=== PATIENT | female | born 1975 | race Caucasian/White ===

== ENCOUNTER 2017-10-06 10:11 | Emergency (ER) | payer OTHER ==
[2017-10-06 10:29] VITALS: BP 125/63; RESP 18
[2017-10-06] MEDS ORDERED: IPRATROPIUM-ALBUTEROL 3 ML NEB INHALATION STA (10:44)
--- NOTE | 2017-10-06 10:47 | ED ---
URI HPI - General Chief Complaint: Upper Respiratory Infection Stated Complaint: cough, chest congestion Time Seen by Provider: 10/06/17 10:30 Source: patient, RN notes reviewed Mode of arrival: ambulatory Limitations: no limitations - History of Present Illness Initial Comments: This is a 42-year-old female with a prior history of bronchitis last year also pneumonia about 3 years ago who states she had the onset 4 days ago of a cough with rhinorrhea some sore throat slight shortness of breath. No definite fevers or chills or sweats. She states she's been coughing quite a bit. She coughs up some phlegm but is not sure what color it is that she does not look at it. He has a nausea vomiting no earaches no similar symptoms reported. She states that at times she does need a rescue inhaler though she has not been using it this week. MD Complaint: cough, sore throat, nasal congestion - Related Data Home Medications Medication Instructions Recorded Confirmed Levothyroxine Sodium [Synthroid] 75 mcg PO DAILY 07/25/14 09/11/15 Albuterol Inhaler [Ventolin 1 - 2 puff INHALATION Q4HR PRN 02/06/15 09/11/15 Inhaler] Previous Rx's Medication Instructions Recorded Acetaminophen-Codeine 300-30mg 1 each PO Q4H PRN #20 tablet 07/30/15 [Tylenol w/codeine #3] Naproxen [Naprosyn] 500 mg PO Q12HR #24 tab 07/30/15 Acetaminophen-Codeine 300-30mg 1 tab PO Q6H PRN #20 tablet 09/11/15 [Tylenol #3] Metaxalone [Skelaxin] 800 mg PO TID PRN #15 tab 09/11/15 Albuterol Inhaler [Ventolin Hfa 2 puff INHALATION Q6HR PRN #1 10/06/17 Inhaler] inhaler predniSONE 20 mg PO BID #10 tab 10/06/17 Allergies Allergy/AdvReac Type Severity Reaction Status Date / Time azithromycin Allergy Rash/Hives Verified 10/06/17 10:29 erythromycin base Allergy Nausea & Verified 10/06/17 10:29 [Erythromycin Base] Vomiting methylphenidate HCl Allergy Rash/Hives Verified 10/06/17 10:29 [From Ritalin] zolpidem tartrate Allergy Nausea & Verified 10/06/17 10:29 [From nAnien] Vomiting Review of Systems ROS Statement: Those systems with pertinent positive or pertinent negative responses have been documented in the HPI. ROS Other: All systems not noted in ROS Statement are negative. Past Medical History Past Medical History: Thyroid Disorder Additional Past Medical History / Comment(s): BACK PAIN History of Any Multi-Drug Resistant Organisms: None Reported Past Surgical History: Tonsillectomy Additional Past Surgical History / Comment(s): ganglion cyst removed right wrist , abcess drained left hip Past Psychological History: No Psychological Hx Reported Smoking Status: Never smoker Past Alcohol Use History: Rare Past Drug Use History: None Reported General Exam - General Exam Comments Initial Comments: This is a well-developed well-nourished awake alert oriented 4 female Limitations: no limitations General appearance: alert, other (A coarse cough is noted.) Head exam: Present: atraumatic, normocephalic, normal inspection Eye exam: Present: normal appearance, PERRL, EOMI. Absent: scleral icterus, conjunctival injection, periorbital swelling ENT exam: Present: mucous membranes moist, other (Mild posterior pharyngeal hyperemia no exudate seen no tonsillar pillars and see had a tonsillectomy. TMs are intact and boggy nasal mucosa with evidence of some mild clear drainage) Neck exam: Present: normal inspection, full ROM. Absent: tenderness, meningismus, lymphadenopathy Respiratory exam: Present: decreased breath sounds Cardiovascular Exam: Present: regular rate, normal rhythm, normal heart sounds. Absent: systolic murmur, diastolic murmur, rubs, gallop, clicks GI/Abdominal exam: Absent: distended, tenderness, guarding, rebound, rigid Extremities exam: Present: normal inspection, full ROM, normal capillary refill. Absent: tenderness, pedal edema, joint swelling, calf tenderness Back exam: Present: normal inspection Neurological exam: Present: alert, oriented X3, CN II-XII intact Psychiatric exam: Present: normal affect, normal mood Skin exam: Present: warm, dry, intact, normal color. Absent: rash Course Vital Signs 10/06/17 10/06/17 10/06/17 10:26 11:05 11:14 Temperature 99 F Pulse Rate 69 58 L 62 Respiratory 18 Rate Blood Pressure 125/63 O2 Sat by Pulse 96 Oximetry Medical Decision Making - Medical Decision Making Patient initially improved her lung sounds have improved she had increased aeration and is breathing easier. The influenza swab was negative. The presentation is consistent with a viral upper respiratory infection with bronchospasm. She will be discharged on appropriate medication and short course of oral steroids she will be given a new inhaler as for otherwise over 3 years old. The patient is a nonsmoker and will avoid smoke. - Lab Data Lab Results 10/06/17 Range/Units 10:56 Influenza Type A RNA Not Detected (Not Detectd) Influenza Type B (PCR) Not Detected (Not Detectd) - Radiology Data Radiology results: report reviewed (I did review the imaging and reports no evidence of acute findings on x-ray.), image reviewed Disposition Clinical Impression: Acute bronchospasm, Viral upper respiratory infection Disposition: HOME SELF-CARE Condition: Good Instructions: Upper Respiratory Infection (ED), Bronchospasm (ED) Prescriptions: Albuterol Inhaler [Ventolin Hfa Inhaler] 2 puff INHALATION Q6HR PRN #1 inhaler PRN Reason: Dyspnea predniSONE 20 mg PO BID #10 tab Referrals: Reanna Patton III, MD [Primary Care Provider] - 1-2 days
--- NOTE | 2017-10-06 11:41 | XR ---
EXAMINATION TYPE: XR chest 2V DATE OF EXAM: 10/06/2017 COMPARISON: 02/06/2015 HISTORY: 42-year-old female with cough and congestion TECHNIQUE: PA and lateral views FINDINGS: The cardiomediastinal silhouette, aorta, and pulmonary vasculature are within normal limits. Some str selma lower lung atelectasis. Otherwise, lungs and pleural spaces are clear. IMPRESSION: No acute cardiopulmonary process.
[2017-10-06] MEDS ORDERED: predniSONE 50 MG TAB PO STA (11:49)
[2017-10-06 12:02] VITALS: PULSE 66; TEMP 97.8
== END 2017-10-06 12:01 | disposition home or self-care (01) ==
LOC: EC 10:11
DX: J98.01 Acute bronchospasm (principal); J06.9 Acute upper respiratory infection, unspecified; E07.9 Disorder of thyroid, unspecified; Z88.1 Allergy status to other antibiotic agents; Z88.8 Allergy status to other drugs, medicaments and biological substances; Z79.899 Other long term (current) drug therapy
CPT/HCPCS: 99284; 94640; 87502; 71020; J7512

== ENCOUNTER → 2017-12-06 | Outpatient (CLI) | payer OTHER ==
--- NOTE | 2017-12-06 10:11 | MM ---
Reason for exam: screening (asymptomatic). Baseline mammogram. History: Patient is nulliparous. Physical Findings: Nurse did not find any significant physical abnormalities on exam. MG Screening Mammo w CAD Bilateral CC and MLO view(s) were taken. The breast tissue is heterogeneously dense. This may lower the sensitivity of mammography. Focal asymmetry left lower inner quadrant middle position. These results were verbally communicated with the patient and result sheet given to the patient on 12/06/17. ASSESSMENT: Incomplete: need additional imaging evaluation, BI-RAD 0 RECOMMENDATION: Ultrasound of the left breast. [facility] will attempt to contact patient to return for ultrasound.
--- NOTE | 2017-12-06 10:13 | USB ---
Reason for exam: additional evaluation requested from abnormal screening. History: Patient is nulliparous. US Breast Workup Limited LT Left breast ultrasound demonstrates a 0.7 x 0.3 x 0.8cm oval, mixed lesion at 7 o'clock. These results were verbally communicated with the patient and result sheet given to the patient on 12/06/17. ASSESSMENT: Probably benign, BI-RAD 3 RECOMMENDATION: Follow-up diagnostic mammogram and ultrasound of the left breast in 6 months.
--- NOTE | 2017-12-06 19:20 | US ---
EXAMINATION TYPE: US abdomen complete DATE OF EXAM: 12/06/2017 COMPARISON: NONE CLINICAL HISTORY: R10.11 RUQ pain. RUQ pain for 5 months, getting worse. Nausea and vomiting for 2 mo nths, IBS EXAM MEASUREMENTS: Liver Length: 16.7 cm Gallbladder Wall: 0.2 cm CBD: 0.3 cm Spleen: 12.7 cm Right Kidney: 10.3 x 3.3 x 4.9 cm Left Kidney: 12.3 x 5.2 x 4.7 cm Technical limitations due to patient's body habitus and large amount of overlying bowel content Pancreas: Obscured by bowel gas Liver: attenuating Gallbladder: no evidence of stones Evidence for sonographic Rizzo's sign: yes CBD: appears wnl as visualized Spleen: wnl Right Kidney: no evidence of hydronephrosis or mass Left Kidney: no evidence of hydronephrosis or mass Upper IVC: wnl Abd Aorta: visualized portions appear wnl, bifurcation obscured IMPRESSION: 1. Visualized abdomen is unremarkable. 2. There is limitation due to body habitus and bowel gas.
== END | disposition home or self-care (01) ==
LOC: RADMAMWWP 06:51
PROVIDERS: ATTEND Family Medicine
DX: Z12.31 Encounter for screening mammogram for malignant neoplasm of breast (principal); R14.3 Flatulence
CPT/HCPCS: 76700; 77067

== ENCOUNTER → 2018-06-04 | Outpatient (CLI) | payer OTHER ==
--- NOTE | 2018-06-05 10:05 | MM ---
Reason for exam: follow-up at short interval from prior study. Last mammogram was performed 6 months ago. History: Patient is nulliparous. Physical Findings: Nurse did not find any significant physical abnormalities on exam. MG Diagnostic Mammo LT w CAD CC and MLO view(s) were taken of the left breast. Prior study comparison: December 06, 2017, bilateral MG screening mammo w CAD. The breast tissue is heterogeneously dense. This may lower the sensitivity of mammography. No suspicious abnormality. The lower inner quadrant middle depth focal asymmetry is unchanged from the prior. These results were verbally communicated with the patient and result sheet given to the patient on 06/04/18. ASSESSMENT: Probably benign, BI-RAD 3 RECOMMENDATION: Follow-up diagnostic mammogram of both breasts in 6 months. Back on schedule for November 2018.
--- NOTE | 2018-06-05 10:12 | USB ---
Reason for exam: additional evaluation requested from abnormal screening. History: Patient is nulliparous. US Breast LT Left complete breast ultrasound includes all four quadrants, the retroareolar region and axilla. Finding demonstrates a 0.4 x 0.4 x 0.4cm oval, cystic, benign lesion at 4 o'clock, a 0.2 x 0.2 x 0.2cm lesion too small to characterize at 5 o'clock, 6 month follow up recommended and a 0.4 x 0.1 x 0.4cm cystic, benign lesion at 7 o'clock. These results were verbally communicated with the patient and result sheet given to the patient on 06/04/18. ASSESSMENT: Probably benign, BI-RAD 3 RECOMMENDATION: Ultrasound of the left breast in 6 months. (attention 5 o'clock)
== END | disposition home or self-care (01) ==
LOC: RADMAMWWP 14:32
PROVIDERS: ATTEND Family Medicine
DX: R92.8 Other abnormal and inconclusive findings on diagnostic imaging of breast (principal)
CPT/HCPCS: 77065

== ENCOUNTER 2018-11-23 14:40 | Emergency (ER) | payer OTHER ==
[2018-11-23 15:13] VITALS: BP 141/87; PULSE 74; RESP 18; TEMP 98.4
[2018-11-23] MEDS ORDERED: KETOROLAC 60 MG/2 ML VIAL IM STA (16:17)
--- NOTE | 2018-11-23 16:56 | ED ---
General Adult HPI - General Chief complaint: Back Pain/Injury Stated complaint: Back pain Source: patient, RN notes reviewed, old records reviewed Mode of arrival: ambulatory Limitations: no limitations - History of Present Illness Initial comments: 43-year-old female patient with past history of chronic back pain, muscle spasms present to ED with approximately 2 days of right perithoracic muscle spasms. 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 Patient states that she has been muscle tightness, muscle spasms last 2 days. Patient states that she has taken Robaxin at home with limited success. Pt states that muscle spasms feel the same as they have in the past. Patient denies any falls or trauma. Patient denies any other symptoms. Patient has a nausea vomiting diarrhea, fever chills, saddle anesthesia, paresthesias, IV drug use, chest pain, shortness breath, abdominal pain. Pt states that she is not . Systemic: Pt denies fatigue, fever/chills, rash. Pt denies weakness, night sweats, weight loss. Neuro: Pt denies headache, visual disturbances, syncope or pre-syncope. HEENT: Pt denies ocular discharge or irritation, otalgia, rhinorrhea, pharyngitis or notable lymphadenopathy. Cardiopulmonary: Pt denies chest pain, SOB, heart palpitations, dyspnea on exertion. Abdominal/GI: Pt denies abdominal pain, n/v/d. : Pt denies dysuria, burning w/ urination, frequency/urgency. Denies new onset urinary or bowel incontinence. MSK: Pt denies myalgia, loss of strength or function in extremities. Neuro: Pt denies new onset weakness, paresthesias. - Related Data Home Medications Medication Instructions Recorded Confirmed Levothyroxine Sodium [Synthroid] 75 mcg PO DAILY 07/25/14 09/17/18 Albuterol Inhaler [Ventolin 1 - 2 puff INHALATION Q4HR PRN 02/06/15 09/17/18 Inhaler] Previous Rx's Medication Instructions Recorded Naproxen [Naprosyn] 500 mg PO Q12HR #24 tab 07/30/15 Metaxalone [Skelaxin] 800 mg PO TID PRN #15 tab 09/11/15 Albuterol Inhaler [Ventolin Hfa 2 puff INHALATION Q6HR PRN #1 11/25/17 Inhaler] inhaler SUMAtriptan SUCCINATE [Imitrex] 25 mg PO ONCE PRN #12 tablet 11/07/17 Allergies Allergy/AdvReac Type Severity Reaction Status Date / Time azithromycin Allergy Rash/Hives Verified 11/23/18 15:13 erythromycin base Allergy Nausea & Verified 11/23/18 15:13 [Erythromycin Base] Vomiting methylphenidate HCl Allergy Rash/Hives Verified 11/23/18 15:13 [From Ritalin] zolpidem tartrate Allergy Nausea & Verified 11/23/18 15:13 [From Ambien] Vomiting Review of Systems ROS Statement: Those systems with pertinent positive or pertinent negative responses have been documented in the HPI. ROS Other: All systems not noted in ROS Statement are negative. Past Medical History Past Medical History: Thyroid Disorder Additional Past Medical History / Comment(s): BACK PAIN History of Any Multi-Drug Resistant Organisms: MRSA Date of last positivie culture/infection: childhood MDRO Source:: left hip Past Surgical History: Tonsillectomy Additional Past Surgical History / Comment(s): ganglion cyst removed right wrist , abcess drained left hip Past Psychological History: Depression Smoking Status: Never smoker Past Alcohol Use History: None Reported Past Drug Use History: None Reported General Exam - General Exam Comments Initial Comments: Constitutional: NAD, AOX3, Pt has pleasant affect. HEENT: NC/AT, trachea midline, neck supple, no lymphadenopathy. Posterior pharynx non erythematous, without exudates. External ears appear normal, without discharge. Mucous membranes moist. Eyes PERRLA, EOM intact. There is no scleral icterus. No pallor noted. Cardiopulmonary: RRR, no murmurs, rubs or gallops, no JVD noted. Lungs CTAB in anterior and posterior gutierrez. No peripheral edema. Abdominal exam: Abdomen soft and non-distended. Abdomen non-tender to palpation in all 4 quadrants. Bowel sounds active in LLQ. No hepatosplenomegaly. No ecchymosis Neuro: CN II-XII intact. No nuchal rigidity. Kernigs and brudzinskis negative. MSK: Psoas and quadriceps strength 5/5 bilaterally. Pt ambulatory, heel to toe walking intact. R para thoracic region mildly tender to palpation. No midline cervical, thoracic or lumbar tenderness to palpation. No posterior calf tenderness bilaterally, homans sign negative bilaterally. Posterior tibialis and radial pulse +2 bilaterally. Sensation intact in upper and lower extremities. Full active ROM in upper and lower extremities, 5/5 stregnth. Limitations: no limitations Course Vital Signs 11/23/18 15:10 Temperature 98.4 F Pulse Rate 74 Respiratory 18 Rate Blood Pressure 141/87 O2 Sat by Pulse 99 Oximetry Medical Decision Making - Medical Decision Making 43-year-old female patient with past history of chronic back pain, muscle spasms present to ED with approximately 2 days of right perithoracic muscle spasms. 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 Patient states that she has been muscle tightness, muscle spasms last 2 days. Patient states that she has taken Robaxin at home with limited success. Pt states that muscle spasms feel the same as they have in the past. Patient denies any falls or trauma. Patient denies any other symptoms. Physical exam displayed: Psoas and quadriceps strength 5/5 bilaterally. Pt ambulatory, heel to toe walking intact. R para thoracic region mildly tender to palpation. No midline cervical, thoracic or lumbar tenderness to palpation. Pt improved with toradol. Pt feel comfortable with discharge and to resume her outpatient regimen. Patient to follow up with primary care provider tomorrow. Patient to return to ED if descends symptoms develop, or if condition worsens in any way. Case discussed in depth with Dr. Patel. Disposition Clinical Impression: Spasm of thoracic back muscle Disposition: HOME SELF-CARE Condition: Good Instructions: Chronic Back Pain (ED), Acute Low Back Pain (ED) Additional Instructions: Patient to adhere to previously discussed treatment plan and will take medication(s) as directed. Patient to follow up with PCP in 1-2 days. Patient to return to ED if symptoms do not improve. Is patient prescribed a controlled substance at d/c from ED?: No Referrals: Reanna Patton III, MD [Primary Care Provider] - 1-2 days Time of Disposition: 16:55
== END 2018-11-23 17:02 | disposition home or self-care (01) ==
LOC: EC 14:40
DX: M62.830 Muscle spasm of back (principal); G89.29 Other chronic pain; E07.9 Disorder of thyroid, unspecified; Z79.890 Hormone replacement therapy; Z88.1 Allergy status to other antibiotic agents; Z88.8 Allergy status to other drugs, medicaments and biological substances
CPT/HCPCS: 99283; J1885

== ENCOUNTER 2019-04-02 07:32 | Day surgery (SDC) | payer OTHER ==
[2019-04-01 09:06] VITALS: BMI 43.7
[~2019-04-02 07:32] MED LIST: LACTATED RINGERS 1,000 ML IV SCH
[2019-04-02 08:41] VITALS: TEMP 96.9
[2019-04-02] MEDS ORDERED: LIDOCAINE 1% 20 ML VIAL (10MG/ML) FOR IV START INTRADERMA ONE (08:47)
[2019-04-02] MEDS ORDERED: MIDAZOLAM 2 MG/2 ML VIAL ONE (09:13)
[2019-04-02] MEDS ORDERED: fentaNYL (PF) 50 MCG/ML 2 ML AMP ONE (09:13)
[2019-04-02] MEDS ORDERED: PROPOFOL 10 MG/ML 20 ML VIAL IV ONE (09:13)
--- NOTE | 2019-04-02 09:29 | P.PCN ---
Date of Procedure: 04/02/19 Procedure(s) Performed: Brief history: Patient is a pleasant 44-year-old white female, scheduled for an elective upper endoscopy as well as colonoscopy as a part of evaluation of iron deficiency anemia. She denies any abdominal pain, nausea vomiting. She does bleed of intermittent chronic diarrhea for years duration. Procedure performed: Esophagogastroduodenoscopy with biopsy Colonoscopy Preoperative diagnosis: Iron deficiency anemia and/chronic diarrhea [place] [facility] [place]: After informed consent was obtained from the patient was brought into the endoscopy unit and IV sedation was administered by anesthesia under continuous monitoring. Initially upper endoscopy was done. The Olympus GF 160 video endoscope was inserted inserted into the mouth and esophagus intubated without any difficulty and was gradually advanced into the stomach and duodenum and carefully examined. The bulb and second part of the duodenum had mild minimal mucosal changes with scalloping of the mucosa suspicious for celiac disease and multiple biopsies were done from this area. The scope was then withdrawn into the stomach adequately insufflated with air and upon careful examination the antrum had mild gastritis and biopsies were done from this area. The body, cardia and fundus appeared normal. The scope was then withdrawn into the esophagus. The GE junction was located at 40 cm to the incisors. It appeared regular with no erythema erosions or ulcerations. Rest of the esophagus appeared normal. Patient tolerated the procedure well. At this time the patient continued to remain sedation. Initial digital rectal examination was normal. Olympus CF 160 video colonoscope was then inserted into the rectum and gradually advanced to the cecum without any difficulty. Careful examination was performed as the scope was gradually being withdrawn. The prep was excellent. The cecum, ascending colon, transverse colon, descending colon, sigmoid colon and rectum appeared normal. Retroflexion was performed in the rectum and no lesions were noted. Patient tolerated the procedure well. Impression: 1. Upper endoscopy revealed gastritis and mild scalloping of the duodenal mucosa in the second portion of the duodenum status post multiple biopsies to rule out celiac disease 2. Colonoscopy was essentially within normal limits with no evidence of colitis or colorectal neoplasia Recommendations: Findings of this examination were discussed with the patient as well as her family. She was advised to follow with the biopsy results. she can have a repeat screening colonoscopy in 10 years.
[2019-04-02 09:37] VITALS: RESP 18
[2019-04-02 10:05] VITALS: BP 125/60; PULSE 65
== END 2019-04-02 10:15 | disposition home or self-care (01) ==
LOC: ORWHC2ENDO 07:32
PROVIDERS: ATTEND Internal Medicine Gastroenterology
DX: K29.50 Unspecified chronic gastritis without bleeding (principal); D50.9 Iron deficiency anemia, unspecified; K52.9 Noninfective gastroenteritis and colitis, unspecified; E66.01 Morbid (severe) obesity due to excess calories; Z68.41 Body mass index [BMI] 40.0-44.9, adult; E07.9 Disorder of thyroid, unspecified; G89.29 Other chronic pain; M54.9 Dorsalgia, unspecified; Z79.1 Long term (current) use of non-steroidal anti-inflammatories (NSAID); Z79.890 Hormone replacement therapy; Z79.899 Other long term (current) drug therapy; Z88.1 Allergy status to other antibiotic agents; Z88.8 Allergy status to other drugs, medicaments and biological substances
CPT/HCPCS: 81025; 88305; 45378; 43239; J2250; J3010; J2704

== ENCOUNTER 2019-04-17 13:57 | Emergency (ER) | payer OTHER ==
[2019-04-17] MEDS ORDERED: DEXAMETHASONE SOD PHOSPHATE 10 MG/ML 1 ML VIAL IM STA (14:55)
--- NOTE | 2019-04-17 15:04 | ED ---
General Adult HPI - General Chief complaint: Shortness of Breath Stated complaint: AIXA Time Seen by Provider: 04/17/19 14:45 Source: patient, RN notes reviewed, old records reviewed Mode of arrival: ambulatory Limitations: no limitations - History of Present Illness Initial comments: 44-year-old female presented for evaluation of cough and congestion. Patient's symptoms have been present for approximately one week. She reports rhinorrhea and nasal congestion. She has previous history of seasonal ALLERGIES. She hasn't had a nonproductive cough. No fever chills. No sore throat. No chest pain. No history of CAD, no history of DVT or PE. She is a nonsmoker. - Related Data Home Medications Medication Instructions Recorded Confirmed Levothyroxine Sodium [Synthroid] 75 mcg PO DAILY 07/25/14 04/17/19 Meloxicam [Mobic] 7.5 mg PO DAILY PRN 04/01/19 04/17/19 Methocarbamol [Robaxin] 750 mg PO Q8HR PRN 04/01/19 04/17/19 Albuterol Inhaler [Ventolin Hfa 2 puff INHALATION RT-Q6H PRN 04/17/19 04/17/19 Inhaler] Bacillus Coagulans/Inulin 1 cap PO DAILY 04/17/19 04/17/19 [Probiotic with Prebiotic Cap] Biotin 5 mg PO DAILY 04/17/19 04/17/19 Cholecalciferol (Vitamin D3) 2,000 unit PO DAILY 04/17/19 04/17/19 [Vitamin D3] Cyanocobalamin (Vitamin B-12) 1,000 mcg PO DAILY 04/17/19 04/17/19 [Vitamin B-12] Previous Rx's Medication Instructions Recorded Albuterol Inhaler [Ventolin Hfa 1 - 2 puff INHALATION Q4HR PRN #1 04/17/19 Inhaler] inhaler Loratadine [Claritin] 10 mg PO DAILY #30 tab 04/17/19 methylPREDNISolone Dose Pack 4 mg PO DIRECTED #21 package 04/17/19 [Medrol Dose Pack] Allergies Allergy/AdvReac Type Severity Reaction Status Date / Time azithromycin Allergy Rash/Hives Verified 04/17/19 15:04 erythromycin base Allergy Nausea & Verified 04/17/19 15:04 [Erythromycin Base] Vomiting methylphenidate HCl Allergy Rash/Hives Verified 04/17/19 15:04 [From Ritalin] zolpidem tartrate Allergy Nausea & Verified 04/17/19 15:04 [From Ambien] Vomiting Review of Systems ROS Statement: Those systems with pertinent positive or pertinent negative responses have been documented in the HPI. ROS Other: All systems not noted in ROS Statement are negative. Past Medical History Past Medical History: Blood Disorder, Fibromyalgia, Pneumonia, Skin Disorder, Thyroid Disorder Additional Past Medical History / Comment(s): migraines, IRON DEFICIENCY ANEMIA- gets iron infusions, varicose veins, IBS, eczema, hypoglycemia, "slightly leaky bladder" History of Any Multi-Drug Resistant Organisms: MRSA Date of last positivie culture/infection: childhood MDRO Source:: left hip-no sure of organism but staph infections Past Surgical History: Adenoidectomy, Orthopedic Surgery, Tonsillectomy Additional Past Surgical History / Comment(s): ganglion cyst removed right wrist, abcess drained left hip Past Anesthesia/Blood Transfusion Reactions: Motion Sickness Past Psychological History: Anxiety Smoking Status: Never smoker Past Alcohol Use History: None Reported Past Drug Use History: None Reported - Past Family History Mother Family Medical History: Pulmonary Embolus General Exam Limitations: no limitations General appearance: alert, in no apparent distress Head exam: Present: atraumatic, normocephalic Eye exam: Present: normal appearance, PERRL, EOMI ENT exam: Present: other (Bilateral rhinorrhea) Neck exam: Present: normal inspection. Absent: tenderness, meningismus Respiratory exam: Present: other (Bronchospastic cough with good air entry). Absent: respiratory distress, wheezes, rhonchi Cardiovascular Exam: Present: regular rate, normal rhythm GI/Abdominal exam: Present: soft. Absent: distended, tenderness, guarding Extremities exam: Present: normal inspection, normal capillary refill. Absent: pedal edema, calf tenderness Neurological exam: Present: alert, oriented X3, CN II-XII intact. Absent: motor sensory deficit Psychiatric exam: Present: normal affect, normal mood Skin exam: Present: warm, dry, intact. Absent: cyanosis, diaphoretic Course Vital Signs 04/17/19 14:10 Temperature 98.0 F Pulse Rate 90 Respiratory 18 Rate Blood Pressure 130/87 O2 Sat by Pulse 98 Oximetry Medical Decision Making - Medical Decision Making Chest x-ray obtained, negative for acute cardiopulmonary disease. Patient's symptoms likely related to acute bronchitis with seasonal ALLERGIES. Will be prescribed Claritin, albuterol, steroid Dosepak. Disposition Clinical Impression: Acute bronchitis Disposition: HOME SELF-CARE Condition: Good Instructions (If sedation given, give patient instructions): Acute Bronchitis (ED) Prescriptions: Loratadine [Claritin] 10 mg PO DAILY #30 tab methylPREDNISolone Dose Pack [Medrol Dose Pack] 4 mg PO DIRECTED #21 package Albuterol Inhaler [Ventolin Hfa Inhaler] 1 - 2 puff INHALATION Q4HR PRN #1 inhaler PRN Reason: Shortness Of Breath Is patient prescribed a controlled substance at d/c from ED?: No Referrals: Reanna Patton III, MD [Primary Care Provider] - 1-2 days Time of Disposition: 16:03
--- NOTE | 2019-04-17 15:49 | XR ---
EXAMINATION TYPE: XR chest 2V DATE OF EXAM: 04/17/2019 COMPARISON: 10/06/2017 HISTORY: Shortness of breath and cough TECHNIQUE: Frontal and lateral views of the chest are obtained. FINDINGS: There is no focal air space opacity, pleural effusion, or pneumothorax seen. The cardiac silhouette size is within normal limits. The osseous structures are intact. Minimal multilevel dege nerative changes of the spine are seen. IMPRESSION: No acute cardiopulmonary process.
[2019-04-17 16:18] VITALS: BP 124/81; PULSE 79; RESP 16; TEMP 97.9
== END 2019-04-17 16:18 | disposition home or self-care (01) ==
LOC: EC 13:57
DX: J20.9 Acute bronchitis, unspecified (principal); E07.9 Disorder of thyroid, unspecified; Z79.890 Hormone replacement therapy; Z88.1 Allergy status to other antibiotic agents; Z88.8 Allergy status to other drugs, medicaments and biological substances
CPT/HCPCS: 71046; 99285; 96372; J1100

== ENCOUNTER 2019-06-22 | Emergency (ER) | payer OTHER ==
--- NOTE | 2019-06-22 12:02 | ED ---
Extremity Problem HPI - General Chief complaint: Extremity Problem,Nontraumatic Stated complaint: Hand swelling post op Time Seen by Provider: 06/22/19 11:53 Source: patient, RN notes reviewed Mode of arrival: ambulatory Limitations: no limitations - History of Present Illness Initial comments: 44-year-old female presented from chief complaint of hand swelling. Patient states that she had a ganglion cyst by removed by Dr. Clayton on Sunday. Patient states she removed the bandage today andher hand swollen. Patient states that it was a circumferential bandage and wrapped around her wrist. Patient states she has some fullness in her hand denies any paresthesias no weakness. Denies any. Chills. - Related Data Home Medications Medication Instructions Recorded Confirmed Levothyroxine Sodium [Synthroid] 75 mcg PO DAILY 07/25/14 04/17/19 Meloxicam [Mobic] 7.5 mg PO DAILY PRN 04/01/19 04/17/19 Methocarbamol [Robaxin] 750 mg PO Q8HR PRN 04/01/19 04/17/19 Albuterol Inhaler [Ventolin Hfa 2 puff INHALATION RT-Q6H PRN 04/17/19 04/17/19 Inhaler] Bacillus Coagulans/Inulin 1 cap PO DAILY 04/17/19 04/17/19 [Probiotic with Prebiotic Cap] Biotin 5 mg PO DAILY 04/17/19 04/17/19 Cholecalciferol (Vitamin D3) 2,000 unit PO DAILY 04/17/19 04/17/19 [Vitamin D3] Cyanocobalamin (Vitamin B-12) 1,000 mcg PO DAILY 04/17/19 04/17/19 [Vitamin B-12] Previous Rx's Medication Instructions Recorded Albuterol Inhaler [Ventolin Hfa 1 - 2 puff INHALATION Q4HR PRN #1 04/17/19 Inhaler] inhaler Loratadine [Claritin] 10 mg PO DAILY #30 tab 04/17/19 methylPREDNISolone Dose Pack 4 mg PO DIRECTED #21 package 04/17/19 [Medrol Dose Pack] Allergies Allergy/AdvReac Type Severity Reaction Status Date / Time azithromycin Allergy Rash/Hives Verified 06/22/19 11:51 erythromycin base Allergy Nausea & Verified 06/22/19 11:51 [Erythromycin Base] Vomiting methylphenidate HCl Allergy Rash/Hives Verified 06/22/19 11:51 [From Ritalin] zolpidem tartrate Allergy Nausea & Verified 06/22/19 11:51 [From Ambien] Vomiting Review of Systems ROS Statement: Those systems with pertinent positive or pertinent negative responses have been documented in the HPI. ROS Other: All systems not noted in ROS Statement are negative. Past Medical History Past Medical History: Blood Disorder, Fibromyalgia, Pneumonia, Skin Disorder, Thyroid Disorder Additional Past Medical History / Comment(s): migraines, IRON DEFICIENCY ANEMIA- gets iron infusions, varicose veins, IBS, eczema, hypoglycemia, "slightly leaky bladder" History of Any Multi-Drug Resistant Organisms: MRSA Date of last positivie culture/infection: childhood MDRO Source:: left hip-no sure of organism but staph infections Past Surgical History: Adenoidectomy, Orthopedic Surgery, Tonsillectomy Additional Past Surgical History / Comment(s): ganglion cyst removed right wrist, abcess drained left hip Past Anesthesia/Blood Transfusion Reactions: Motion Sickness Past Psychological History: Anxiety Smoking Status: Never smoker Past Alcohol Use History: None Reported Past Drug Use History: None Reported - Past Family History Mother Family Medical History: Pulmonary Embolus General Exam Limitations: no limitations General appearance: alert, in no apparent distress Head exam: Present: atraumatic, normocephalic, normal inspection Respiratory exam: Present: normal lung sounds bilaterally. Absent: respiratory distress, wheezes, rales, rhonchi, stridor Cardiovascular Exam: Present: regular rate, normal rhythm, normal heart sounds. Absent: systolic murmur, diastolic murmur, rubs, gallop, clicks Extremities exam: Present: other (Left hand there is moderate swelling/ecchymosis there is a incision made on the dorsal aspect of the wrist and hand region with [address] no erythema no current drainage. Patient does have some swelling of the hand which is nontender, radial pulses equal bilaterally there is multiple skin unable to asses capillary refill secondary to fake nails) Course Vital Signs 06/22/19 11:48 Temperature 98.9 F Pulse Rate 75 Respiratory 18 Rate Blood Pressure 129/87 O2 Sat by Pulse 99 Oximetry Medical Decision Making - Medical Decision Making 44-year-old female presented for postsurgical hand swelling. This is related to the surgery and circumferential bandage of her wrist. She is advised to only use bandage over the wound no circumferential bandage she will do slight hand pumps and elevation today. Disposition Clinical Impression: Hand swelling Disposition: HOME SELF-CARE Condition: Stable Instructions (If sedation given, give patient instructions): Ganglion Cyst Removal (DC) Additional Instructions: Please return to the Emergency Department if symptoms worsen or any other concerns. Is patient prescribed a controlled substance at d/c from ED?: No Referrals: Reanna Patton III, MD [Primary Care Provider] - 1-2 days Time of Disposition: 12:02
== END 2019-06-22 12:19 | disposition home or self-care (01) ==
CPT/HCPCS: 99283

== ENCOUNTER 2020-01-20 15:49 | Emergency (ER) | payer OTHER ==
[2020-01-20 16:25] VITALS: BP 136/82; PULSE 59; RESP 20; TEMP 98.1
[2020-01-20] MEDS ORDERED: KETOROLAC 30 MG/ML 1 ML VIAL IVP STA (16:46)
[2020-01-20] MEDS ORDERED: SODIUM CHLORIDE 0.9% 1,000 ML IV STA (16:46)
[2020-01-20] MEDS ORDERED: ONDANSETRON 4 MG/2 ML VIAL IVP STA (16:46)
[2020-01-20] MEDS ORDERED: diphenhydrAMINE 50 MG CAP PO STA (16:46)
--- NOTE | 2020-01-20 16:58 | ED ---
Headache HPI - General Chief Complaint: Headache Stated Complaint: migraine Time Seen by Provider: 01/20/20 16:28 Mode of arrival: ambulatory Limitations: no limitations - History of Present Illness Initial Comments: Patient is a 44-year-old female presenting to emergency Department with complaints of a migraine that started early this morning. Patient states she has a history of migraines and typically gets one every couple years. She states this feels like her normal migraines. She states she did try some ibuprofen without relief. She denies having any changes in her vision but does admit to photophobia. She admits to nausea, no vomiting. She denies chest pain, shortness of breath, abdominal pain, diarrhea. She denies any falls or trauma. She has no other complaints at this time. She denies chance for secondary to currently being on her menstrual cycle. Upon arrival to the ER, vital signs are stable. - Related Data Home Medications Medication Instructions Recorded Confirmed Levothyroxine Sodium [Synthroid] 75 mcg PO DAILY 07/25/14 04/17/19 Meloxicam [Mobic] 7.5 mg PO DAILY PRN 04/01/19 04/17/19 Methocarbamol [Robaxin] 750 mg PO Q8HR PRN 04/01/19 04/17/19 Albuterol Inhaler [Ventolin Hfa 2 puff INHALATION RT-Q6H PRN 04/17/19 04/17/19 Inhaler] Bacillus Coagulans/Inulin 1 cap PO DAILY 04/17/19 04/17/19 [Probiotic with Prebiotic Cap] Biotin 5 mg PO DAILY 04/17/19 04/17/19 Cholecalciferol (Vitamin D3) 2,000 unit PO DAILY 04/17/19 04/17/19 [Vitamin D3] Cyanocobalamin (Vitamin B-12) 1,000 mcg PO DAILY 04/17/19 04/17/19 [Vitamin B-12] Previous Rx's Medication Instructions Recorded Albuterol Inhaler [Ventolin Hfa 1 - 2 puff INHALATION Q4HR PRN #1 04/17/19 Inhaler] inhaler Loratadine [Claritin] 10 mg PO DAILY #30 tab 04/17/19 methylPREDNISolone Dose Pack 4 mg PO DIRECTED #21 package 04/17/19 [Medrol Dose Pack] Allergies Allergy/AdvReac Type Severity Reaction Status Date / Time azithromycin Allergy Rash/Hives Verified 01/20/20 16:25 erythromycin base Allergy Nausea & Verified 01/20/20 16:25 [Erythromycin Base] Vomiting methylphenidate HCl Allergy Rash/Hives Verified 01/20/20 16:25 [From Ritalin] zolpidem tartrate Allergy Nausea & Verified 01/20/20 16:25 [From Ambien] Vomiting Review of Systems ROS Statement: Those systems with pertinent positive or pertinent negative responses have been documented in the HPI. ROS Other: All systems not noted in ROS Statement are negative. Past Medical History Past Medical History: Blood Disorder, Fibromyalgia, Pneumonia, Skin Disorder, Thyroid Disorder Additional Past Medical History / Comment(s): migraines, IRON DEFICIENCY ANEMIA- gets iron infusions, varicose veins, IBS, eczema, hypoglycemia, "slightly leaky bladder" History of Any Multi-Drug Resistant Organisms: MRSA Date of last positivie culture/infection: childhood MDRO Source:: left hip-no sure of organism but staph infections Past Surgical History: Adenoidectomy, Orthopedic Surgery, Tonsillectomy Additional Past Surgical History / Comment(s): ganglion cyst removed right wrist, abcess drained left hip Past Anesthesia/Blood Transfusion Reactions: Motion Sickness Past Psychological History: Anxiety Smoking Status: Never smoker Past Alcohol Use History: None Reported Past Drug Use History: None Reported - Past Family History Mother Family Medical History: Pulmonary Embolus General Exam - General Exam Comments Initial Comments: GENERAL: Well-appearing, well-nourished and in no acute distress. Patient sitting in a dark room, sunglasses on. HEAD: Atraumatic, normocephalic. EYES: Pupils equal round and reactive to light, extraocular movements intact, sclera anicteric, conjunctiva are normal. ENT: TMs normal, nares patent, oropharynx clear without exudates. Moist mucous membranes. NECK: Normal range of motion, supple without lymphadenopathy or JVD. LUNGS: Breath sounds clear to auscultation bilaterally and equal. No wheezes rales or rhonchi. HEART: Regular rate and rhythm without murmurs, rubs or gallops. ABDOMEN: Soft, nontender, normoactive bowel sounds. No guarding, no rebound. No masses appreciated. : Deferred EXTREMITIES: Normal range of motion, no pitting or edema. No clubbing or cyanosis. Strength is 5 out of 5 upper and lower extremities. Sensation is equal in bilateral uppe r and lower extremities. NEUROLOGICAL: Cranial nerves II through XII grossly intact. Normal speech, normal gait. PSYCH: Normal mood, normal affect. SKIN: Warm, Dry, normal turgor, no rashes or lesions noted. Limitations: no limitations Course Vital Signs 01/20/20 16:21 Temperature 98.1 F Pulse Rate 59 L Respiratory 20 Rate Blood Pressure 136/82 O2 Sat by Pulse 97 Oximetry Medical Decision Making - Medical Decision Making Patient is a 44-year-old female presenting with a migraine since this morning. She has history of migraines and this feels similar. Her exam is unremarkable, no neuro deficits. Patient was given fluids, Toradol, Zofran, Benadryl and reports improvement in her symptoms. She rates her headache 1/10. Her exam remains unremarkable. She is stable for discharge at this time. Return parameters were discussed with the patient and she verbalized understanding. Case discussed with Dr. Patel. Disposition Clinical Impression: Migraine headache Disposition: HOME SELF-CARE Condition: Stable Instructions (If sedation given, give patient instructions): Acute Headache (ED) Additional Instructions: Please return to the Emergency Department if symptoms worsen or any other concerns. Follow-up with PCP as needed. Is patient prescribed a controlled substance at d/c from ED?: No Referrals: Reanna Patton III, MD [Primary Care Provider] - 1-2 days
== END 2020-01-20 19:00 | disposition home or self-care (01) ==
LOC: EC 15:49
DX: G43.909 Migraine, unspecified, not intractable, without status migrainosus (principal); E07.9 Disorder of thyroid, unspecified; D50.9 Iron deficiency anemia, unspecified; Z88.1 Allergy status to other antibiotic agents; Z88.8 Allergy status to other drugs, medicaments and biological substances; Z79.890 Hormone replacement therapy; Z79.899 Other long term (current) drug therapy; Z86.14 Personal history of Methicillin resistant Staphylococcus aureus infection
CPT/HCPCS: 99283; 96374; 96375; 96361; J2405; J1885

== ENCOUNTER → 2020-06-25 | Outpatient (CLI) | payer OTHER ==
--- NOTE | 2020-06-25 17:51 | ECHOF ---
Referral Reason:R94.31 abnormal EKG MEASUREMENTS -------- HEIGHT: 162.6 cm WEIGHT: 120.2 kg BP: 120/88 RVIDd: 3.0 cm (< 3.3) IVSd: 1.1 cm (0.6 - 1.1) LVIDd: 3.4 cm (3.9 - 5.3) LVPWd: 1.0 cm (0.6 - 1.1) IVSs: 1.4 cm LVIDs: 2.9 cm LVPWs: 1.2 cm LA Diam: 3.2 cm (2.7 - 3.8) LAESV Index (A-L): 14.42 ml/m Ao Diam: 3.0 cm (2.0 - 3.7) AV Cusp: 1.8 cm (1.5 - 2.6) MV EXCURSION: 15.293 mm (> 18.000) MV EF SLOPE: 110 mm/s (70 - 150) EPSS: 0.2 cm MV E Aftab: 1.05 m/s MV DecT: 158 ms MV A Aftab: 0.78 m/s MV E/A Ratio: 1.35 RAP: 5.00 mmHg RVSP: 22.70 mmHg FINDINGS -------- Sinus rhythm. This was a technically adequate study. LV size, wall thickness and systolic function are normal, with an EF greater than 55%. The left tricia tricular size is normal. The right ventricle is normal in size. Normal LA size by volume 22+/-6 ml/m2. The right atrial size is normal. Interatrial and interventricular septum intact. The aortic valve is trileaflet, and appears structurally normal. No aortic stenosis or regurgitation. The mitral valve is normal. There is trace mitral regurgitation. The tricuspid valve appears structurally normal. Mild tricuspid regurgitation present. Right vent ricular systolic pressure is normal at < 35 mmHg. There is no pulmonic regurgitation present. The aortic root size is normal. Normal inferior vena cava with normal inspiratory collapse consistent with estimated right atrial pre ssure of 5 mmHg. There is no pericardial effusion. CONCLUSIONS -------- 1. LV size, wall thickness and systolic function are normal, with an EF greater than 55%. 2. Normal LA size by volume 22+/-6 ml/m2. 3. The aortic valve is trileaflet, and appears structurally normal. No aortic stenosis or regurgitati on. 4. There is trace mitral regurgitation. 5. Mild tricuspid regurgitation present. 6. There is no pericardial effusion. LIABILITY CLAIMS REPRESENTATIVE: Lyndsey Ahmadi RDCS
== END | disposition home or self-care (01) ==
LOC: RADECHMAIN 13:32
PROVIDERS: ATTEND Family Medicine
DX: I07.1 Rheumatic tricuspid insufficiency (principal)
CPT/HCPCS: 93306

== ENCOUNTER → 2020-06-30 | Outpatient (CLI) | payer OTHER ==
--- NOTE | 2020-06-30 14:04 | EST ---
EXERCISE STRESS DATE OF SERVICE: June 30, 2020 AGE: 45 SEX: Fe HT: 64" WT: 264 lbs PROTOCOL: Souleymane Protocol STAGE: 2 DURATION OF EXERCISE: 4:11 minutes HEART RATE REST: 83 BLOOD PRESSURE REST: 131/85 MAXIMUM HEART RATE ACHIEVED: 155 MAXIMUM BLOOD PRESSURE: 178/74 85% MPHR: 150 100% MPHR: 176 METS: 6.0 INDICATIONS: Chest pain. STRESS DATA: Pretesting physical examination showed a heart rate of 83, pressure 131/85 mmHg. Baseline EKG showed sinus mechanism. The patient exercised on the treadmill according to Souleymane protocol for a total of a total of 4 minutes and achieved 6 of METS. Max heart rate was 155, which is about 88% of maximum predicted heart rate and maximum blood pressure was 178/74 mmHg. Clinically the patient did not have any symptoms of chest pain or chest discomfort and the EKG did not show any significant ST or T-wave abnormalities concerning for ischemia. CONCLUSION: 1. Average exercise tolerance. 2. Normal EKG in response to exercise. MMODL / IJN: [id number] /
== END | disposition home or self-care (01) ==
LOC: RADNMMAIN 08:25
PROVIDERS: ATTEND Family Medicine
DX: R94.31 Abnormal electrocardiogram [ECG] [EKG] (principal)
CPT/HCPCS: 93017

== ENCOUNTER 2020-10-25 15:29 | Emergency (ER) | payer OTHER ==
[2020-10-25 15:34] VITALS: TEMP 99
[2020-10-25] MEDS ORDERED: SODIUM CHLORIDE 0.9% 1,000 ML IV STA (16:03)
[2020-10-25 16:51] VITALS: RESP 18
[2020-10-25 17:02] LABS: Basophils # (A) 0.1 k/uL (0-0.2); Basophils % (A) 1 %; Eosinophils # (A) 0.3 k/uL (0-0.7); Eosinophils % (A) 3 %; HCT 43.7 % (34.0-46.0); HGB 14.1 gm/dL (11.4-16.0); Lymphocytes # (A) 1.7 k/uL (1.0-4.8); Lymphocytes % (A) 16 %; MCH 26.8 pg (25.0-35.0); MCHC 32.3 g/dL (31.0-37.0); MCV 83.1 fL (80.0-100.0); Mean Platelet Volume 7.1; Monocytes # (A) 0.5 k/uL (0-1.0); Monocytes % (A) 5 %; Neutrophils # (A) 7.6 k/uL (1.3-7.7); Neutrophils % (A) 74 %; Platelet Count 375 k/uL (150-450); RBC 5.26 m/uL (3.80-5.40); RDW 13.8 % (11.5-15.5); WBC 10.2 k/uL (3.8-10.6)
[2020-10-25 17:03] LABS: Appearance,Urine Cloudy (Clear); Bacteria,Urine Rare /hpf; Bilirubin,Urine Negative (Negative); Blood,Urine Negative (Negative); Color,Urine Yellow; Glucose,Urine (UA) Negative (Negative); Ketones,Urine Negative (Negative); Leukocyte Esterase,Urine Large (Negative); Mucus,Urine Rare /hpf; Nitrite,Urine Negative (Negative); Protein,Urine Negative (Negative); RBC,Urine 2 /hpf (0-5); Specific Gravity,Urine 1.017 (1.001-1.035); Squamous Epithelial Cell,Urine 6 /hpf (0-4); Urobilinogen,Urine <2.0 mg/dL (<2.0); WBC,Urine 3 /hpf (0-5)
[2020-10-25 17:12] LABS: ALT 48 U/L (4-34); AST 57 U/L (14-36); African American GFR (CKD) >90 (>60 ml/min/1.73 sqM); Albumin 4.2 g/dL (3.5-5.0); Alkaline Phosphatase 83 U/L (38-126); Anion Gap 4 mmol/L; Blood Urea Nitrogen 11 mg/dL (7-17); Calcium 9.6 mg/dL (8.4-10.2); Carbon Dioxide 29 mmol/L (22-30); Chloride 105 mmol/L (98-107); Glucose 109 mg/dL (74-99); Non-African American GFR(CKD) >90 (>60 ml/min/1.73 sqM); Potassium 4.6 mmol/L (3.5-5.1); Sodium 138 mmol/L (137-145); Total Bilirubin 0.6 mg/dL (0.2-1.3); Total Protein 7.7 g/dL (6.3-8.2)
--- NOTE | 2020-10-25 17:47 | ED ---
Recheck HPI - General Chief Complaint: Recheck/Abnormal Lab/Rx Stated Complaint: Tingly/Shacky/Poss Low blood Sugar Time Seen by Provider: 10/25/20 15:44 Source: patient Mode of arrival: wheelchair Limitations: no limitations - History of Present Illness Initial Comments: Patient is a 45-year-old female presenting to the emergency Department with complaints of feeling "shaky." She states that he has had issues with low blood sugar in the past and generally tries to keep up on it however today she is feeling like the feeling would not go away. She did eat some oatmeal, her normal coffee and water, she did eat a meal reports she came in as well with no improvement in her symptoms. She denies any fever, chills, chest pain, shortness of breath. She denies any abdominal pain, no nausea or vomiting. She has no other complaints other than feeling shaky. She denies any recent illnesses, no changes in her medication. She denies any urinary complaints. She denies being . She has no further complaints at this time. Upon arrival to the ER, her vitals are stable. - Related Data Home Medications Medication Instructions Recorded Confirmed Levothyroxine Sodium [Synthroid] 75 mcg PO DAILY 07/25/14 04/17/19 Meloxicam [Mobic] 7.5 mg PO DAILY PRN 04/01/19 04/17/19 methocarbamoL [Robaxin] 750 mg PO Q8HR PRN 04/01/19 04/17/19 Albuterol Inhaler (Mhu) [Ventolin 2 puff INHALATION RT-Q6H PRN 04/17/19 04/17/19 Hfa Inhaler (Mhu)] Bacillus Coagulans/Inulin 1 cap PO DAILY 04/17/19 04/17/19 [Probiotic with Prebiotic Cap] Biotin 5 mg PO DAILY 04/17/19 04/17/19 Cholecalciferol (Vitamin D3) 2,000 unit PO DAILY 04/17/19 04/17/19 [Vitamin D3] Cyanocobalamin (Vitamin B-12) 1,000 mcg PO DAILY 04/17/19 04/17/19 [Vitamin B-12] Previous Rx's Medication Instructions Recorded Albuterol Inhaler (Mhu) [Ventolin 1 - 2 puff INHALATION Q4HR PRN #1 04/17/19 Hfa Inhaler (Mhu)] inhaler Loratadine [Claritin] 10 mg PO DAILY #30 tab 04/17/19 methylPREDNISolone Dose Pack 4 mg PO DIRECTED #21 package 04/17/19 [Medrol Dose Pack] Allergies Allergy/AdvReac Type Severity Reaction Status Date / Time azithromycin Allergy Rash/Hives Verified 10/25/20 15:34 erythromycin base Allergy Nausea & Verified 10/25/20 15:34 [Erythromycin Base] Vomiting methylphenidate HCl Allergy Rash/Hives Verified 10/25/20 15:34 [From Ritalin] zolpidem tartrate Allergy Nausea & Verified 10/25/20 15:34 [From Ambien] Vomiting Review of Systems ROS Statement: Those systems with pertinent positive or pertinent negative responses have been documented in the HPI. ROS Other: All systems not noted in ROS Statement are negative. Past Medical History Past Medical History: Blood Disorder, Fibromyalgia, Pneumonia, Skin Disorder, Thyroid Disorder Additional Past Medical History / Comment(s): migraines, IRON DEFICIENCY ANEMIA- gets iron infusions, varicose veins, IBS, eczema, hypoglycemia, "slightly leaky bladder" History of Any Multi-Drug Resistant Organisms: MRSA Date of last positivie culture/infection: childhood MDRO Source:: left hip-no sure of organism but staph infections Past Surgical History: Adenoidectomy, Orthopedic Surgery, Tonsillectomy Additional Past Surgical History / Comment(s): ganglion cyst removed right wrist, abcess drained left hip Past Anesthesia/Blood Transfusion Reactions: Motion Sickness Past Psychological History: Anxiety Past Alcohol Use History: None Reported Past Drug Use History: None Reported - Past Family History Mother Family Medical History: Pulmonary Embolus General Exam - General Exam Comments Initial Comments: GENERAL: Patient is well-developed and well-nourished. Patient is nontoxic and in no acute distress. HEAD: Atraumatic, normocephalic. EYES: Pupils equal round and reactive to light, extraocular movements intact, sclera anicteric, conjunctiva are normal. Eyelids were unremarkable. ENT: TMs normal, nares patent, oropharynx clear without exudates. Moist mucous membranes. NECK: Normal range of motion, supple without lymphadenopathy or JVD. LUNGS: Unlabored respirations. Breath sounds clear to auscultation bilaterally and equal. No wheezes rales or rhonchi. HEART: Regular rate and rhythm without murmurs, rubs or gallops. ABDOMEN: Soft, nontender, normoactive bowel sounds. No guarding, no rebound. No masses appreciated. : Deferred MUSCULOSKELETAL: Normal extremities with adequate strength and normal range of motion, no pitting or edema. No clubbing or cyanosis. NEUROLOGICAL: Patient is alert and oriented x 3. Motor and sensory are also intact. Cranial nerves II through XII grossly intact. Symmetrical smile. Normal speech, normal gait. PSYCH: Normal mood, normal affect. SKIN: Warm, Dry, normal turgor, no rashes or lesions noted. Limitations: no limitations Course Vital Signs 10/25/20 10/25/20 15:30 16:49 Temperature 99 F Pulse Rate 105 H 80 Respiratory 20 18 Rate Blood Pressure 142/88 127/73 O2 Sat by Pulse 95 98 Oximetry Medical Decision Making - Medical Decision Making Patient is a 45-year-old female here with complaint of feeling "shaky." Her vital signs are stable, her exam is unremarkable. Patient has had no other complaints today other than the shakiness. She has had issues with low blood sugar in the past. Patient labs are unremarkable, no acute process seen. Her urine shows no evidence of infection, urine hCG is negative. I did give patient a bolus of fluid. Her glucose did come back at 109, even though she just ate a meal before she came in. I discussed with patient that she could have been having low blood sugar before her arrival. Patient states she does have an appo intment with her regular doctor in a few days. Patient is stable for discharge. She will continue to monitor her blood sugar, eat a regular diet every few hours. Patient is in agreement with this plan of care. Return parameters were discussed with the patient and she verbalized understanding. Case discussed Dr. James. - Lab Data Result diagrams: 10/25/20 16:47 10/25/20 16:47 Lab Results 10/25/20 10/25/20 10/25/20 Range/Units 16:47 16:47 16:47 WBC 10.2 (3.8-10.6) k/uL RBC 5.26 (3.80-5.40) m/uL Hgb 14.1 (11.4-16.0) gm/dL Hct 43.7 (34.0-46.0) % MCV 83.1 (80.0-100.0) fL MCH 26.8 (25.0-35.0) pg MCHC 32.3 (31.0-37.0) g/dL RDW 13.8 (11.5-15.5) % Plt Count 375 (150-450) k/uL MPV 7.1 Neutrophils % 74 % Lymphocytes % 16 % Monocytes % 5 % Eosinophils % 3 % Basophils % 1 % Neutrophils # 7.6 (1.3-7.7) k/uL Lymphocytes # 1.7 (1.0-4.8) k/uL Monocytes # 0.5 (0-1.0) k/uL Eosinophils # 0.3 (0-0.7) k/uL Basophils # 0.1 (0-0.2) k/uL Sodium 138 (137-145) mmol/L Potassium 4.6 (3.5-5.1) mmol/L Chloride 105 (98-107) mmol/L Carbon Dioxide 29 (22-30) mmol/L Anion Gap 4 mmol/L BUN 11 (7-17) mg/dL Creatinine 0.73 (0.52-1.04) mg/dL Est GFR (CKD-EPI)AfAm >90 (>60 ml/min/1.73 sqM) Est GFR (CKD-EPI)NonAf >90 (>60 ml/min/1.73 sqM) Glucose 109 H (74-99) mg/dL Calcium 9.6 (8.4-10.2) mg/dL Total Bilirubin 0.6 (0.2-1.3) mg/dL AST 57 H (14-36) U/L ALT 48 H (4-34) U/L Alkaline Phosphatase 83 (38-126) U/L Total Protein 7.7 (6.3-8.2) g/dL Albumin 4.2 (3.5-5.0) g/dL Urine Color Yellow Urine Appearance Cloudy H (Clear) Urine pH 7.0 (5.0-8.0) Ur Specific [place] 1.017 (1.001-1.035) Urine Protein Negative (Negative) Urine Glucose (UA) Negative (Negative) Urine Ketones Negative (Negative) Urine Blood Negative (Negative) Urine Nitrite Negative (Negative) Urine Bilirubin Negative (Negative) Urine Urobilinogen <2.0 (<2.0) mg/dL Ur Leukocyte Esterase Large H (Negative) Urine RBC 2 (0-5) /hpf Urine WBC 3 (0-5) /hpf Ur Squamous Epith Cells 6 H (0-4) /hpf Urine Bacteria Rare H (None) /hpf Urine Mucus Rare H (None) /hpf Urine HCG, Qual (Not Detectd) 10/25/20 Range/Units 16:47 WBC (3.8-10.6) k/uL RBC (3.80-5.40) m/uL Hgb (11.4-16.0) gm/dL Hct (34.0-46.0) % MCV (80.0-100.0) fL MCH (25.0-35.0) pg MCHC (31.0-37.0) g/dL RDW (11.5-15.5) % Plt Count (150-450) k/uL MPV Neutrophils % % Lymphocytes % % Monocytes % % Eosinophils % % Basophils % % Neutrophils # (1.3-7.7) k/uL Lymphocytes # (1.0-4.8) k/uL Monocytes # (0-1.0) k/uL Eosinophils # (0-0.7) k/uL Basophils # (0-0.2) k/uL Sodium (137-145) mmol/L Potassium (3.5-5.1) mmol/L Chloride (98-107) mmol/L Carbon Dioxide (22-30) mmol/L Anion Gap mmol/L BUN (7-17) mg/dL Creatinine (0.52-1.04) mg/dL Est GFR (CKD-EPI)AfAm (>60 ml/min/1.73 sqM) Est GFR (CKD-EPI)NonAf (>60 ml/min/1.73 sqM) Glucose (74-99) mg/dL Calcium (8.4-10.2) mg/dL Total Bilirubin (0.2-1.3) mg/dL AST (14-36) U/L ALT (4-34) U/L Alkaline Phosphatase (38-126) U/L Total Protein (6.3-8.2) g/dL Albumin (3.5-5.0) g/dL Urine Color Urine Appearance (Clear) Urine pH (5.0-8.0) Ur Specific [place] (1.001-1.035) Urine Protein (Negative) Urine Glucose (UA) (Negative) Urine Ketones (Negative) Urine Blood (Negative) Urine Nitrite (Negative) Urine Bilirubin (Negative) Urine Urobilinogen (<2.0) mg/dL Ur Leukocyte Esterase (Negative) Urine RBC (0-5) /hpf Urine WBC (0-5) /hpf Ur Squamous Epith Cells (0-4) /hpf Urine Bacteria (None) /hpf Urine Mucus (None) /hpf Urine HCG, Qual Not Detected (Not Detectd) Disposition Clinical Impression: Low glucose level Disposition: HOME SELF-CARE Condition: Stable Instructions (If sedation given, give patient instructions): Non-diabetic Hypoglycemia (ED) Additional Instructions: Please return to the Emergency Department if symptoms worsen or any other concerns. Continue to monitor glucose level, eat a regular diet, stacks every couple hours , and plenty of fluids. Follow up with her regular doctor. Is patient prescribed a controlled substance at d/c from ED?: No Referrals: Reanna Patton III, MD [Primary Care Provider] - 1-2 days
[2020-10-25 18:03] VITALS: BP 123/71; PULSE 75
== END 2020-10-25 18:03 | disposition home or self-care (01) ==
LOC: EC 15:29
DX: E16.2 Hypoglycemia, unspecified (principal); M79.7 Fibromyalgia; E07.9 Disorder of thyroid, unspecified; Z79.890 Hormone replacement therapy; Z79.899 Other long term (current) drug therapy; Z88.1 Allergy status to other antibiotic agents; Z88.8 Allergy status to other drugs, medicaments and biological substances
CPT/HCPCS: 36415; 80053; 81001; 81025; 85025; 96360; 99283

== ENCOUNTER 2020-10-27 21:53 | Emergency (ER) | payer OTHER ==
[2020-10-27] MEDS ORDERED: SODIUM CHLORIDE 0.9% 1,000 ML IV STA (22:09)
[2020-10-27] MEDS ORDERED: ASPIRIN 81 MG PO STA (22:09)
[2020-10-27] MEDS ORDERED: ONDANSETRON 4 MG/2 ML VIAL IVP STA (22:11)
[2020-10-27 22:30] LABS: Basophils # (A) 0.2 k/uL (0-0.2); Basophils % (A) 2 %; Eosinophils # (A) 0.3 k/uL (0-0.7); Eosinophils % (A) 3 %; HCT 41.7 % (34.0-46.0); HGB 13.9 gm/dL (11.4-16.0); Lymphocytes # (A) 2.2 k/uL (1.0-4.8); Lymphocytes % (A) 22 %; MCH 27.8 pg (25.0-35.0); MCHC 33.5 g/dL (31.0-37.0); MCV 83.2 fL (80.0-100.0); Monocytes # (A) 0.6 k/uL (0-1.0); Monocytes % (A) 6 %; Neutrophils # (A) 6.9 k/uL (1.3-7.7); Neutrophils % (A) 67 %; Platelet Count 382 k/uL (150-450); RBC 5.01 m/uL (3.80-5.40); RDW 13.5 % (11.5-15.5); WBC 10.4 k/uL (3.8-10.6)
--- NOTE | 2020-10-27 22:36 | XR ---
EXAMINATION TYPE: XR chest 2V DATE OF EXAM: 10/27/2020 COMPARISON: 04/17/2019 HISTORY: Cough and congestion TECHNIQUE: 2 views FINDINGS: Heart and mediastinum are normal. Lungs are clear. Diaphragm is normal. There are chest angelina ds. Bony thorax is intact. IMPRESSION: Normal chest. No change.
[2020-10-27 22:39] LABS: INR 0.9 (<1.2); Partial Thromboplastin Time 23.5 sec (22.0-30.0); Prothrombin Time 9.7 sec (9.0-12.0)
[2020-10-27 22:41] LABS: ALT 50 U/L (4-34); AST 49 U/L (14-36); African American GFR (CKD) >90 (>60 ml/min/1.73 sqM); Albumin 4.2 g/dL (3.5-5.0); Alkaline Phosphatase 81 U/L (38-126); Anion Gap 7 mmol/L; Blood Urea Nitrogen 11 mg/dL (7-17); Calcium 9.4 mg/dL (8.4-10.2); Carbon Dioxide 26 mmol/L (22-30); Chloride 106 mmol/L (98-107); Glucose 113 mg/dL (74-99); Lipase 84 U/L (23-300); Magnesium 2.2 mg/dL (1.6-2.3); Non-African American GFR(CKD) >90 (>60 ml/min/1.73 sqM); Potassium 4.2 mmol/L (3.5-5.1); Sodium 139 mmol/L (137-145); Total Bilirubin 0.4 mg/dL (0.2-1.3); Total Protein 7.6 g/dL (6.3-8.2)
--- NOTE | 2020-10-27 22:47 | ED ---
Weakness HPI - General Chief complaint: Weakness Stated complaint: Weakness Time Seen by Provider: 10/27/20 22:04 Source: patient Mode of arrival: ambulatory Limitations: no limitations - History of Present Illness Initial comments: 45-year-old female patient presents to the emergency department today for evaluation of generalized weakness, chest pain, nausea. Patient states he has been feeling unwell since last Sunday. Was evaluated in the emergency department on Sunday and discharged home. Patient states that today she developed chest pain which was new since she came in for further evaluation. She states she is nauseated but has not vomited. States that she does have fibromyalgia and usually does have some element of chest pain but this feels different. Denies any shortness of breath. Denies any cough or congestion. She denies any known fever or chills. Denies constipation or diarrhea. Patient denies any recent rash, abdominal pain, back pain, numbness, tingling, dizziness, weakness, hematuria, dysuria, urinary urgency, urinary frequency, headache, visual changes, or any other complaints. - Related Data Home Medications Medication Instructions Recorded Confirmed Levothyroxine Sodium [Synthroid] 75 mcg PO DAILY 07/25/14 04/17/19 Meloxicam [Mobic] 7.5 mg PO DAILY PRN 04/01/19 04/17/19 methocarbamoL [Robaxin] 750 mg PO Q8HR PRN 04/01/19 04/17/19 Albuterol Inhaler (Mhu) [Ventolin 2 puff INHALATION RT-Q6H PRN 04/17/19 04/17/19 Hfa Inhaler (Mhu)] Bacillus Coagulans/Inulin 1 cap PO DAILY 04/17/19 04/17/19 [Probiotic with Prebiotic Cap] Biotin 5 mg PO DAILY 04/17/19 04/17/19 Cholecalciferol (Vitamin D3) 2,000 unit PO DAILY 04/17/19 04/17/19 [Vitamin D3] Cyanocobalamin (Vitamin B-12) 1,000 mcg PO DAILY 04/17/19 04/17/19 [Vitamin B-12] Previous Rx's Medication Instructions Recorded Albuterol Inhaler (Mhu) [Ventolin 1 - 2 puff INHALATION Q4HR PRN #1 04/17/19 Hfa Inhaler (Mhu)] inhaler Loratadine [Claritin] 10 mg PO DAILY #30 tab 04/17/19 methylPREDNISolone Dose Pack 4 mg PO DIRECTED #21 package 04/17/19 [Medrol Dose Pack] Allergies Allergy/AdvReac Type Severity Reaction Status Date / Time azithromycin Allergy Rash/Hives Verified 10/25/20 15:34 erythromycin base Allergy Nausea & Verified 10/25/20 15:34 [Erythromycin Base] Vomiting methylphenidate HCl Allergy Rash/Hives Verified 10/25/20 15:34 [From Ritalin] zolpidem tartrate Allergy Nausea & Verified 10/25/20 15:34 [From Ambien] Vomiting Review of Systems ROS Statement: Those systems with pertinent positive or pertinent negative responses have been documented in the HPI. ROS Other: All systems not noted in ROS Statement are negative. Past Medical History Past Medical History: Blood Disorder, Fibromyalgia, Pneumonia, Skin Disorder, Thyroid Disorder Additional Past Medical History / Comment(s): migraines, IRON DEFICIENCY ANEMIA- gets iron infusions, varicose veins, IBS, eczema, hypoglycemia, "slightly leaky bladder" History of Any Multi-Drug Resistant Organisms: MRSA Date of last positivie culture/infection: childhood MDRO Source:: left hip-no sure of organism but staph infections Past Surgical History: Adenoidectomy, Orthopedic Surgery, Tonsillectomy Additional Past Surgical History / Comment(s): ganglion cyst removed right wrist, abcess drained left hip Past Anesthesia/Blood Transfusion Reactions: Motion Sickness Past Psychological History: Anxiety Smoking Status: Never smoker Past Alcohol Use History: None Reported Past Drug Use History: None Reported - Past Family History Mother Family Medical History: Pulmonary Embolus General Exam Limitations: no limitations General appearance: alert, in no apparent distress, other (Physical well- developed, well-nourished adult female patient in no acute distress. Vital signs upon presentation are temperature 98.4F, pulse 89, respirations 18, blood pressure 144/91, pulse ox 97% on room air.) ENT exam: Present: normal exam, normal oropharynx, mucous membranes moist Respiratory exam: Present: normal lung sounds bilaterally. Absent: respiratory distress, wheezes, rales, rhonchi, stridor Cardiovascular Exam: Present: regular rate, normal rhythm, normal heart sounds. Absent: systolic murmur, diastolic murmur, rubs, gallop, clicks GI/Abdominal exam: Present: soft, normal bowel sounds. Absent: distended, tende rness, guarding, rebound, rigid Neurological exam: Present: alert, oriented X3, CN II-XII intact Psychiatric exam: Present: normal affect, normal mood Skin exam: Present: warm, dry, intact, normal color. Absent: rash Course Vital Signs 10/27/20 10/27/20 10/27/20 21:54 22:23 22:26 Temperature 98.4 F Pulse Rate 89 72 Pulse Rate [ 72 Rice Farmer ] Respiratory 18 18 Rate Blood Pressure 144/91 141/89 O2 Sat by Pulse 97 94 L Oximetry 10/27/20 10/27/20 10/28/20 22:43 23:42 00:00 Temperature Pulse Rate 76 78 Pulse Rate [ Rice Farmer ] Respiratory 18 18 Rate Blood Pressure 127/73 134/78 O2 Sat by Pulse 94 L 96 98 Oximetry 10/28/20 10/28/20 10/28/20 00:30 00:43 01:00 Temperature 97.8 F Pulse Rate 75 69 76 Pulse Rate [ Rice Farmer ] Respiratory 18 16 10 L Rate Blood Pressure 116/67 119/71 119/71 O2 Sat by Pulse 98 98 98 Oximetry EKG Findings - EKG Comments: EKG Findings:: EKG obtained at 2211 shows normal sinus rhythm with a ventricular rate of 78, [place] interval 124, QRS duration 74, QT 360, QTC 410. No evidence of ST elevation or depression. Medical Decision Making - Medical Decision Making 45-year-old female patient presents to the emergency department today for evaluation of weakness, chest pain, nausea. Physical examination was unremarkable. She is neurologically intact with no focal deficits. Labs re viewed and are unremarkable. Troponin is negative. EKG shows normal sinus rhythm. We did send a COVID-19 swab. I did discuss findings and results with her. She'll be discharged to follow-up with her primary care physician for recheck in 1-2 days. Return parameters were discussed in detail. She verbalizes understanding and agrees with this plan. - Lab Data Result diagrams: 10/27/20 22:20 10/27/20 22:20 Lab Results 10/27/20 10/27/20 10/27/20 Range/Units 22:20 22:20 22:20 WBC 10.4 (3.8-10.6) k/uL RBC 5.01 (3.80-5.40) m/uL Hgb 13.9 (11.4-16.0) gm/dL Hct 41.7 (34.0-46.0) % MCV 83.2 (80.0-100.0) fL MCH 27.8 (25.0-35.0) pg MCHC 33.5 (31.0-37.0) g/dL RDW 13.5 (11.5-15.5) % Plt Count 382 (150-450) k/uL MPV 7.0 Neutrophils % 67 % Lymphocytes % 22 % Monocytes % 6 % Eosinophils % 3 % Basophils % 2 % Neutrophils # 6.9 (1.3-7.7) k/uL Lymphocytes # 2.2 (1.0-4.8) k/uL Monocytes # 0.6 (0-1.0) k/uL Eosinophils # 0.3 (0-0.7) k/uL Basophils # 0.2 (0-0.2) k/uL PT 9.7 (9.0-12.0) sec INR 0.9 (<1.2) APTT 23.5 (22.0-30.0) sec Sodium 139 (137-145) mmol/L Potassium 4.2 (3.5-5.1) mmol/L Chloride 106 (98-107) mmol/L Carbon Dioxide 26 (22-30) mmol/L Anion Gap 7 mmol/L BUN 11 (7-17) mg/dL Creatinine 0.72 (0.52-1.04) mg/dL Est GFR (CKD-EPI)AfAm >90 (>60 ml/min/1.73 sqM) Est GFR (CKD-EPI)NonAf >90 (>60 ml/min/1.73 sqM) Glucose 113 H (74-99) mg/dL Calcium 9.4 (8.4-10.2) mg/dL Magnesium 2.2 (1.6-2.3) mg/dL Total Bilirubin 0.4 (0.2-1.3) mg/dL AST 49 H (14-36) U/L ALT 50 H (4-34) U/L Alkaline Phosphatase 81 (38-126) U/L Troponin I (0.000-0.034) ng/mL Total Protein 7.6 (6.3-8.2) g/dL Albumin 4.2 (3.5-5.0) g/dL Lipase 84 (23-300) U/L /16/20 Range/Units 22:20 WBC (3.8-10.6) k/uL RBC (3.80-5.40) m/uL Hgb (11.4-16.0) gm/dL Hct (34.0-46.0) % MCV (80.0-100.0) fL MCH (25.0-35.0) pg MCHC (31.0-37.0) g/dL RDW (11.5-15.5) % Plt Count (150-450) k/uL MPV Neutrophils % % Lymphocytes % % Monocytes % % Eosinophils % % Basophils % % Neutrophils # (1.3-7.7) k/uL Lymphocytes # (1.0-4.8) k/uL Monocytes # (0-1.0) k/uL Eosinophils # (0-0.7) k/uL Basophils # (0-0.2) k/uL PT (9.0-12.0) sec INR (<1.2) APTT (22.0-30.0) sec Sodium (137-145) mmol/L Potassium (3.5-5.1) mmol/L Chloride (98-107) mmol/L Carbon Dioxide (22-30) mmol/L Anion Gap mmol/L BUN (7-17) mg/dL Creatinine (0.52-1.04) mg/dL Est GFR (CKD-EPI)AfAm (>60 ml/min/1.73 sqM) Est GFR (CKD-EPI)NonAf (>60 ml/min/1.73 sqM) Glucose (74-99) mg/dL Calcium (8.4-10.2) mg/dL Magnesium (1.6-2.3) mg/dL Total Bilirubin (0.2-1.3) mg/dL AST (14-36) U/L ALT (4-34) U/L Alkaline Phosphatase (38-126) U/L Troponin I <0.012 (0.000-0.034) ng/mL Total Protein (6.3-8.2) g/dL Albumin (3.5-5.0) g/dL Lipase (23-300) U/L - Radiology Data Radiology results: report reviewed, image reviewed Two-view x-ray of the chest is obtained. Report was reviewed in its entirety. Impression by Dr. Daley shows normal chest. No change. Disposition Clinical Impression: Weakness, Chest pain Disposition: HOME SELF-CARE Condition: Good Instructions (If sedation given, give patient instructions): Chest Pain (ED), Weakness (ED) Additional Instructions: Follow-up with her primary care physician for recheck tomorrow. Await COVID-19 results. Return to the emergency department for any new, worsening, or concerning symptoms. Is patient prescribed a controlled substance at d/c from ED?: No Referrals: Reanna Patton III, MD [Primary Care Provider] - 1-2 days Time of Disposition: 01:07
[2020-10-28 01:28] VITALS: BP 119/71; PULSE 76; RESP 10; TEMP 97.8
== END 2020-10-28 01:30 | disposition home or self-care (01) ==
LOC: EC 21:53
DX: R53.1 Weakness (principal); R07.9 Chest pain, unspecified; R11.0 Nausea; E07.9 Disorder of thyroid, unspecified; M79.7 Fibromyalgia; Z79.1 Long term (current) use of non-steroidal anti-inflammatories (NSAID); Z79.890 Hormone replacement therapy; Z88.1 Allergy status to other antibiotic agents; Z88.8 Allergy status to other drugs, medicaments and biological substances; Z86.14 Personal history of Methicillin resistant Staphylococcus aureus infection; Z90.89 Acquired absence of other organs
CPT/HCPCS: 99285; 96374; 96361 ×3; 36415; 93005; 80053; 83690; 83735; 84484; 85025; 85610; 85730; 71046; J2405

== ENCOUNTER → 2020-10-28 | Outpatient (CLI) | payer OTHER | END | disposition home or self-care (01) | LOC: LABWHC1 12:10 | PROVIDERS: ATTEND Physician Assistant Medical | DX: U07.1 COVID-19 (principal); R07.9 Chest pain, unspecified; R53.1 Weakness | CPT/HCPCS: 87635; C9803 ==

== ENCOUNTER 2020-12-28 13:13 | Emergency (ER) | payer OTHER ==
[2020-12-28] MEDS ORDERED: diphenhydrAMINE 50 MG CAP PO STA (13:33)
[2020-12-28] MEDS ORDERED: SODIUM CHLORIDE 0.9% 1,000 ML IV STA (13:33)
[2020-12-28] MEDS ORDERED: ONDANSETRON 4 MG/2 ML VIAL IVP STA (13:33)
[2020-12-28] MEDS ORDERED: KETOROLAC 15 MG/ML 1 ML VIAL IVP STA (13:33)
--- NOTE | 2020-12-28 13:36 | ED ---
General Adult HPI - General Chief complaint: Headache Stated complaint: dizziness/migraine Time Seen by Provider: 12/28/20 13:22 Source: patient Mode of arrival: ambulatory Limitations: no limitations - History of Present Illness Initial comments: Dictation was produced using [employer] dictation software. please excuse any grammatical, word or spelling errors. This patient was cared for during a federal and state declared state of emergency secondary to Covid 19 Chief Complaint: 45-year-old female with past medical history of chronic neurologic processes, fibromyalgia, thyroid disease presents with headache History of Present Illness: 45-year-old female she presents today with acute headache. Patient states her symptoms began today. Patient has history of headaches that are similar to today's presentations although not is usually as severe per she states the onset of her symptoms were faster than usual however not thunderclap. She states that the location of her symptoms are similar to headache she is having passed. She does not report that this is the worse headache she is around her life. Patient has chronic right lower facial and right hand paresthesias that have been ongoing since . She does follow up with a neurologist and is supposed to get an MRI however due to claustrophobia she has been unable to get it yet. Denies any runny nose. No dental pain. Denies any constitutional symptoms. Denies any visual loss. She does complain of some mild photophobia. No radiation of symptoms. The ROS documented in this emergency department record has been reviewed and confirmed by me. Those systems with pertinent positive or negative responses have been documented in the HPI. All other systems are other negative and/or noncontributory. PHYSICAL EXAM: General Impression: Alert and oriented x3, not in acute distress, smiling and well-appearing HEENT: Normocephalic atraumatic, extra-ocular movements intact, pupils equal and reactive to light bilaterally, mucous membranes moist. Cardiovascular: Heart regular rate and rhythm Chest: Able to complete full sentences, no retractions, no tachypnea Abdomen: abdomen soft, non-tender, non-distended, no organomegaly Musculoskeletal: Pulses present and equal in all extremities, no peripheral edema Motor: no focal deficits noted Neurological: CN II-XII grossly intact, no focal motor or sensory deficits noted Skin: Intact with no visualized rashes Psych: Normal affect and mood ED course: 45-year-old female presents with chief complaint of headache. Patient does not have any high-risk features. Physical examination is benign. Signs upon arrival are within acceptable limits. Patient ordered for headache cocktail. Physical labs are unremarkable. Patient observed in the emergency department for almost 2 hours. Patient reevaluated at 2:55 PM with almost complete resolution of symptoms. Patient is agreeable for discharge. She is advised follow-up with this. EKG interpretation: Ventricular rate 4, normal sinus rhythm, KS interval 120, QRS 74, QTC 419. No KS prolongation, no QTC prolongation, no ST or T-wave changes noted. Overall, this EKG is unremarkable - Related Data Home Medications Medication Instructions Recorded Confirmed Levothyroxine Sodium [Synthroid] 75 mcg PO DAILY 07/25/14 12/28/20 Bacitracin Ophth Ointment 1 applic LEFT EYE BID 12/28/20 12/28/20 Allergies Allergy/AdvReac Type Severity Reaction Status Date / Time azithromycin Allergy Rash/Hives Verified 12/28/20 14:15 erythromycin base Allergy Nausea & Verified 12/28/20 14:15 [Erythromycin Base] Vomiting methylphenidate HCl Allergy Rash/Hives Verified 12/28/20 14:15 [From Ritalin] zolpidem tartrate Allergy Nausea & Verified 12/28/20 14:15 [From Ambien] Vomiting Review of Systems ROS Statement: Those systems with pertinent positive or pertinent negative responses have been documented in the HPI. ROS Other: All systems not noted in ROS Statement are negative. Past Medical History Past Medical History: Blood Disorder, Fibromyalgia, Pneumonia, Skin Disorder, Thyroid Disorder Additional Past Medical History / Comment(s): migraines, IRON DEFICIENCY ANEMIA- gets iron infusions, varicose veins, IBS, eczema, hypoglycemia, "slightly leaky bladder",migraine History of Any Multi-Drug Resistant Organisms: MRSA Date of last positivie culture/infection: childhood MDRO Source:: left hip-no sure of organism but staph infections Past Surgical History: Adenoidectomy, Orthopedic Surgery, Tonsillectomy Additional Past Surgical History / Comment(s): ganglion cyst removed right wrist, abcess drained left hip, Past Anesthesia/Blood Transfusion Reactions: Motion Sickness Past Psychological History: Anxiety Smoking Status: Never smoker Past Alcohol Use History: Occasional Past Drug Use History: None Reported - Past Family History Mother Family Medical History: Pulmonary Embolus General Exam Limitations: no limitations Course Vital Signs 12/28/20 13:18 Temperature 98.1 F Pulse Rate 84 Respiratory 18 Rate Blood Pressure 134/92 O2 Sat by Pulse 95 Oximetry Medical Decision Making - Lab Data Result diagrams: 12/28/20 13:44 12/28/20 13:44 Lab Results 12/28/20 12/28/20 Range/Units 13:44 13:44 WBC 8.2 (3.8-10.6) k/uL RBC 4.88 (3.80-5.40) m/uL Hgb 13.4 (11.4-16.0) gm/dL Hct 40.0 (34.0-46.0) % MCV 81.9 (80.0-100.0) fL MCH 27.4 (25.0-35.0) pg MCHC 33.4 (31.0-37.0) g/dL RDW 13.4 (11.5-15.5) % Plt Count 341 (150-450) k/uL MPV 6.8 Neutrophils % 75 % Lymphocytes % 16 % Monocytes % 5 % Eosinophils % 2 % Basophils % 1 % Neutrophils # 6.2 (1.3-7.7) k/uL Lymphocytes # 1.3 (1.0-4.8) k/uL Monocytes # 0.4 (0-1.0) k/uL Eosinophils # 0.2 (0-0.7) k/uL Basophils # 0.0 (0-0.2) k/uL Sodium 137 (137-145) mmol/L Potassium 4.2 (3.5-5.1) mmol/L Chloride 105 (98-107) mmol/L Carbon Dioxide 28 (22-30) mmol/L Anion Gap 4 mmol/L BUN 7 (7-17) mg/dL Creatinine 0.71 (0.52-1.04) mg/dL Est GFR (CKD-EPI)AfAm >90 (>60 ml/min/1.73 sqM) Est GFR (CKD-EPI)NonAf >90 (>60 ml/min/1.73 sqM) Glucose 95 (74-99) mg/dL Calcium 9.2 (8.4-10.2) mg/dL Disposition Clinical Impression: Headache Disposition: HOME SELF-CARE Condition: Good Instructions (If sedation given, give patient instructions): Acute Headache (ED) Is patient prescribed a controlled substance at d/c from ED?: No Referrals: Reanna Patton III, MD [Primary Care Provider] - 1-2 days Sheridan Renteria MD [REFERRING] - 1-2 days Time of Disposition: 14:55
[2020-12-28 14:06] LABS: Basophils % (A) 1 %; Eosinophils # (A) 0.2 k/uL (0-0.7); Eosinophils % (A) 2 %; HGB 13.4 gm/dL (11.4-16.0); Lymphocytes # (A) 1.3 k/uL (1.0-4.8); Lymphocytes % (A) 16 %; MCH 27.4 pg (25.0-35.0); MCHC 33.4 g/dL (31.0-37.0); MCV 81.9 fL (80.0-100.0); Mean Platelet Volume 6.8; Monocytes # (A) 0.4 k/uL (0-1.0); Monocytes % (A) 5 %; Neutrophils # (A) 6.2 k/uL (1.3-7.7); Neutrophils % (A) 75 %; Platelet Count 341 k/uL (150-450); RBC 4.88 m/uL (3.80-5.40); RDW 13.4 % (11.5-15.5); WBC 8.2 k/uL (3.8-10.6)
[2020-12-28 14:21] LABS: African American GFR (CKD) >90 (>60 ml/min/1.73 sqM); Anion Gap 4 mmol/L; Blood Urea Nitrogen 7 mg/dL (7-17); Calcium 9.2 mg/dL (8.4-10.2); Carbon Dioxide 28 mmol/L (22-30); Chloride 105 mmol/L (98-107); Glucose 95 mg/dL (74-99); Non-African American GFR(CKD) >90 (>60 ml/min/1.73 sqM); Potassium 4.2 mmol/L (3.5-5.1); Sodium 137 mmol/L (137-145)
[2020-12-28 15:02] VITALS: BP 134/71; PULSE 68; RESP 16; TEMP 98.2
== END 2020-12-28 15:05 | disposition home or self-care (01) ==
LOC: EC 13:13
DX: G43.909 Migraine, unspecified, not intractable, without status migrainosus (principal); E07.9 Disorder of thyroid, unspecified; Z79.890 Hormone replacement therapy; Z88.1 Allergy status to other antibiotic agents; Z88.8 Allergy status to other drugs, medicaments and biological substances; Z90.89 Acquired absence of other organs; Z86.14 Personal history of Methicillin resistant Staphylococcus aureus infection
CPT/HCPCS: 36415; 93005; 80048; 85025; 99283; 96374; 96375; 96361; J2405; J1885

== ENCOUNTER 2021-02-11 21:00 | Emergency (ER) | payer OTHER ==
[2021-02-11] MEDS ORDERED: FAMOTIDINE 20 MG/2 ML VIAL IV STA (22:04)
[2021-02-11] MEDS ORDERED: diphenhydrAMINE 50 MG CAP PO STA (22:04)
[2021-02-11] MEDS ORDERED: methylPREDNISolone SOD SUCCI 125 MG/2 ML VIAL IV STA (22:04)
--- NOTE | 2021-02-11 22:07 | ED ---
General Adult HPI - General Chief complaint: Shortness of Breath Stated complaint: Diff Breathing Time Seen by Provider: 02/11/21 21:54 Source: patient, RN notes reviewed Mode of arrival: ambulatory - History of Present Illness Initial comments: Patient is a 45-year-old female that presents to emergency department complaining of wheezing for the past 2 days. She notes that she was doing her nails at home filed them thinks that she is having ALLERGIC reaction or the proximal she was assisted to her nails. She states that her face became itchy and she started to wheeze. She noted that she took a few puffs of inhaler which seemed to work minimally. She decided to come in the ER to get further evaluated. She denied any pain. She was in no apparent distress while sitting up in bed during exam and interview. She denied any chest pain headache nausea vomiting diarrhea constipation fever fatigue chills. - Related Data Home Medications Medication Instructions Recorded Confirmed Levothyroxine Sodium [Synthroid] 75 mcg PO DAILY 07/25/14 02/11/21 Allergies Allergy/AdvReac Type Severity Reaction Status Date / Time azithromycin Allergy Rash/Hives Verified 02/11/21 22:19 methylphenidate HCl Allergy Rash/Hives Verified 02/11/21 22:19 [From Ritalin] erythromycin base AdvReac Nausea & Verified 02/11/21 22:19 [Erythromycin Base] Vomiting gabapentin AdvReac Hallucinati Verified 02/11/21 22:19 ons hydrocodone AdvReac Nausea & Verified 02/11/21 22:19 Vomiting zolpidem tartrate AdvReac Nausea & Verified 02/11/21 22:19 [From Ambien] Vomiting Review of Systems ROS Statement: Those systems with pertinent positive or pertinent negative responses have been documented in the HPI. ROS Other: All systems not noted in ROS Statement are negative. Past Medical History Past Medical History: Blood Disorder, Fibromyalgia, Pneumonia, Skin Disorder, Thyroid Disorder Additional Past Medical History / Comment(s): migraines, IRON DEFICIENCY ANEMIA- gets iron infusions, varicose veins, IBS, eczema, hypoglycemia, "slightly leaky bladder" History of Any Multi-Drug Resistant Organisms: MRSA Date of last positivie culture/infection: childhood MDRO Source:: left hip-no sure of organism but staph infections Past Surgical History: Adenoidectomy, Orthopedic Surgery, Tonsillectomy Additional Past Surgical History / Comment(s): ganglion cyst removed right wrist, abcess drained left hip Past Anesthesia/Blood Transfusion Reactions: Motion Sickness Past Psychological History: Anxiety Smoking Status: Never smoker Past Alcohol Use History: None Reported Past Drug Use History: None Reported - Past Family History Mother Family Medical History: Pulmonary Embolus General Exam General appearance: alert, in no apparent distress Head exam: Present: atraumatic, normocephalic, normal inspection Eye exam: Present: normal appearance, PERRL, EOMI. Absent: scleral icterus, conjunctival injection, periorbital swelling Neck exam: Present: normal inspection. Absent: tenderness, meningismus, lymphadenopathy Respiratory exam: Present: normal lung sounds bilaterally, wheezes (Mild bilaterally.). Absent: respiratory distress, rales, rhonchi, stridor Cardiovascular Exam: Present: regular rate, normal rhythm, normal heart sounds. Absent: systolic murmur, diastolic murmur, rubs, gallop, clicks GI/Abdominal exam: Present: soft, normal bowel sounds. Absent: distended, tenderness, guarding, rebound, rigid Extremities exam: Present: normal inspection, full ROM, normal capillary refill. Absent: tenderness, pedal edema, joint swelling, calf tenderness Neurological exam: Present: alert, oriented X3, CN II-XII intact Psychiatric exam: Present: normal affect, normal mood Skin exam: Present: warm, dry, intact, normal color. Absent: rash Course Vital Signs 02/11/21 21:36 Temperature 99 F Pulse Rate 85 Respiratory 21 Rate Blood Pressure 146/96 O2 Sat by Pulse 98 Oximetry Medical Decision Making - Medical Decision Making 45-year-old female complaining of ALLERGIC reaction with itchy face and respiratory wheezes. Chest x-ray, Covid test, 50 mg of Benadryl, 125 mg of methylprednisone, 20 mg of famotidine ordered. Upon checking patient states she is feeling much better after the steroid shot. Patient states that she wants to go home and be contact with any positive results of her Covid test. Case discussed with Dr. Henley patient discharged home with follow-up to primary care. - Radiology Data Radiology results: report reviewed, image reviewed Chest x-ray: Normal exam Disposition Clinical Impression: Allergic reaction Disposition: HOME SELF-CARE Condition: Stable Instructions (If sedation given, give patient instructions): General Allergic Reaction (ED) Additional Instructions: Please return to the Emergency Department if symptoms worsen or any other concerns. Follow-up with primary care in 3-5 days. Continue take Benadryl at home for symptomatically control. Take inhaler as needed for wheezing. Is patient prescribed a controlled substance at d/c from ED?: No Referrals: Reanan Patton III, MD [Primary Care Provider] - 1-2 days Time of Disposition: 23:12
--- NOTE | 2021-02-11 22:33 | XR ---
EXAMINATION TYPE: XR chest 1V portable DATE OF EXAM: 02/11/2021 COMPARISON: 10/27/2020 HISTORY: Chest pain. Short of breath TECHNIQUE: FINDINGS: Heart and mediastinum are normal. Lungs are clear. Diaphragm is normal. Bony thorax appears normal. IMPRESSION: Normal chest. No change.
[2021-02-12 00:58] VITALS: BP 142/79; PULSE 82; RESP 18; TEMP 98.1
== END 2021-02-12 00:10 | disposition home or self-care (01) ==
LOC: EC 21:00
DX: T78.49XA Other allergy, initial encounter (principal); F41.9 Anxiety disorder, unspecified
CPT/HCPCS: 87635; 71045; 99283; 96374; 96375; J2930

== ENCOUNTER 2021-04-09 14:42 | Emergency (ER) | payer OTHER ==
[2021-04-09] MEDS ORDERED: SODIUM CHLORIDE 0.9% 1,000 ML IV STA (15:01)
--- NOTE | 2021-04-09 15:14 | ED ---
General Adult HPI - General Chief complaint: Dizziness Stated complaint: Shaking,Nausea Time Seen by Provider: 04/09/21 14:52 Source: patient Mode of arrival: wheelchair Limitations: no limitations - History of Present Illness Initial comments: 46-year-old female presents to the emergency department with a chief complaint of lightheadedness. Patient reports she has been experiencing symptoms intermittently over the last several months. Patient reports her symptoms began yesterday when she continues to feel lightheaded but not dizzy. States that she also feels occasionally shaking in her hands with some nausea but denies any vomiting. She also reports several pieces of diarrhea today. She denies any visual changes, headaches, chills, fevers. She reports some sinus congestion which she believes it is secondary to her seasonal ALLERGIES. She also has an intermittent dry cough. Denies any urinary or vaginal symptoms. Denies possibility of . - Related Data Home Medications Medication Instructions Recorded Confirmed Levothyroxine Sodium [Synthroid] 75 mcg PO DAILY 07/25/14 04/09/21 Albuterol Sulfate [Proair Hfa] 2 puff INHALATION RT-QID PRN 04/09/21 04/09/21 Ergocalciferol (Vitamin D2) 1,250 mcg PO MO 04/09/21 04/09/21 [Drisdol (50,000 Iu)] Allergies Allergy/AdvReac Type Severity Reaction Status Date / Time azithromycin Allergy Rash/Hives Verified 04/09/21 14:47 methylphenidate HCl Allergy Rash/Hives Verified 04/09/21 14:47 [From Ritalin] erythromycin base AdvReac Nausea & Verified 04/09/21 14:47 [Erythromycin Base] Vomiting gabapentin AdvReac Hallucinati Verified 04/09/21 14:47 ons hydrocodone AdvReac Nausea & Verified 04/09/21 14:47 Vomiting zolpidem tartrate AdvReac Nausea & Verified 04/09/21 14:47 [From Ambien] Vomiting Review of Systems ROS Statement: Those systems with pertinent positive or pertinent negative responses have been documented in the HPI. ROS Other: All systems not noted in ROS Statement are negative. Past Medical History Past Medical History: Blood Disorder, Fibromyalgia, Pneumonia, Skin Disorder, Thyroid Disorder Additional Past Medical History / Comment(s): migraines, IRON DEFICIENCY ANEMIA- gets iron infusions, varicose veins, IBS, eczema, hypoglycemia, "slightly leaky bladder" History of Any Multi-Drug Resistant Organisms: MRSA Date of last positivie culture/infection: childhood MDRO Source:: left hip-no sure of organism but staph infections Past Surgical History: Adenoidectomy, Orthopedic Surgery, Tonsillectomy Additional Past Surgical History / Comment(s): ganglion cyst removed right wrist, abcess drained left hip Past Anesthesia/Blood Transfusion Reactions: Motion Sickness Past Psychological History: Anxiety Smoking Status: Never smoker Past Alcohol Use History: None Reported Past Drug Use History: None Reported - Past Family History Mother Family Medical History: Pulmonary Embolus General Exam Limitations: no limitations General appearance: alert, in no apparent distress, obese Head exam: Present: atraumatic, normocephalic, normal inspection Eye exam: Present: normal appearance, PERRL, EOMI Pupils: Present: normal accommodation ENT exam: Present: normal exam, normal oropharynx, mucous membranes moist Neck exam: Present: normal inspection, full ROM. Absent: tenderness Respiratory exam: Present: normal lung sounds bilaterally. Absent: respiratory distress, wheezes, rales, rhonchi, stridor Cardiovascular Exam: Present: regular rate, normal rhythm, normal heart sounds. Absent: systolic murmur Extremities exam: Present: normal inspection, full ROM, normal capillary refill Back exam: Present: normal inspection, full ROM Neurological exam: Present: alert, oriented X3 Psychiatric exam: Present: normal affect, normal mood Skin exam: Present: warm, dry, intact, normal color Course Vital Signs 04/09/21 04/09/21 14:44 17:09 Temperature 97.8 F 98.4 F Pulse Rate 72 84 Respiratory 20 18 Rate Blood Pressure 129/86 144/79 O2 Sat by Pulse 99 98 Oximetry EKG Findings - EKG Comments: EKG Findings:: Sinus rhythm. Ventricular rate 70, MA 132, QRS 78, QTC 412. Medical Decision Making - Medical Decision Making 46-year-old female presents to the emergency department with a chief complaint of lightheadedness. Physical examination is unremarkable. No focal neural deficits. CBC CMP UA unremarkable. mild transaminitis Initial troponin is nega tive. Patient was given 1 L IV bolus fluids. EKG shows no acute ischemic changes. Vital signs are within normal limits. On reevaluation, patient reports feeling improved after the fluids. I advised her to follow with the primary care physician. Return parameters were thoroughly discussed the p atient's worsening agreeable. Case discussed with - Lab Data Result diagrams: 04/09/21 15:50 04/09/21 15:50 Lab Results 04/09/21 04/09/21 04/09/21 Range/Units 15:50 15:50 15:50 WBC 6.6 (3.8-10.6) k/uL RBC 5.07 (3.80-5.40) m/uL Hgb 14.3 (11.4-16.0) gm/dL Hct 42.0 (34.0-46.0) % MCV 82.9 (80.0-100.0) fL MCH 28.3 (25.0-35.0) pg MCHC 34.2 (31.0-37.0) g/dL RDW 14.1 (11.5-15.5) % Plt Count 337 (150-450) k/uL MPV 6.9 Neutrophils % 62 % Lymphocytes % 24 % Monocytes % 8 % Eosinophils % 4 % Basophils % 1 % Neutrophils # 4.1 (1.3-7.7) k/uL Lymphocytes # 1.6 (1.0-4.8) k/uL Monocytes # 0.5 (0-1.0) k/uL Eosinophils # 0.3 (0-0.7) k/uL Basophils # 0.1 (0-0.2) k/uL Sodium 138 (137-145) mmol/L Potassium 4.7 (3.5-5.1) mmol/L Chloride 103 (98-107) mmol/L Carbon Dioxide 29 (22-30) mmol/L Anion Gap 6 mmol/L BUN 5 L (7-17) mg/dL Creatinine 0.69 (0.52-1.04) mg/dL Est GFR (CKD-EPI)AfAm >90 (>60 ml/min/1.73 sqM) Est GFR (CKD-EPI)NonAf >90 (>60 ml/min/1.73 sqM) Glucose 93 (74-99) mg/dL Calcium 9.6 (8.4-10.2) mg/dL Total Bilirubin 0.6 (0.2-1.3) mg/dL AST 65 H (14-36) U/L ALT 56 H (4-34) U/L Alkaline Phosphatase 84 (38-126) U/L Troponin I (0.000-0.034) ng/mL Total Protein 7.0 (6.3-8.2) g/dL Albumin 4.0 (3.5-5.0) g/dL Urine Color Light Yellow Urine Appearance Clear (Clear) Urine pH 7.0 (5.0-8.0) Ur Specific [place] 1.005 (1.001-1.035) Urine Protein Negative (Negative) Urine Glucose (UA) Negative (Negative) Urine Ketones Negative (Negative) Urine Blood Negative (Negative) Urine Nitrite Negative (Negative) Urine Bilirubin Negative (Negative) Urine Urobilinogen <2.0 (<2.0) mg/dL Ur Leukocyte Esterase Negative (Negative) Urine HCG, Qual (Not Detectd) Coronavirus (PCR) (Not Detectd) 04/09/21 04/09/21 04/09/21 Range/Units 15:50 15:50 15:50 WBC (3.8-10.6) k/uL RBC (3.80-5.40) m/uL Hgb (11.4-16.0) gm/dL Hct (34.0-46.0) % MCV (80.0-100.0) fL MCH (25.0-35.0) pg MCHC (31.0-37.0) g/dL RDW (11.5-15.5) % Plt Count (150-450) k/uL MPV Neutrophils % % Lymphocytes % % Monocytes % % Eosinophils % % Basophils % % Neutrophils # (1.3-7.7) k/uL Lymphocytes # (1.0-4.8) k/uL Monocytes # (0-1.0) k/uL Eosinophils # (0-0.7) k/uL Basophils # (0-0.2) k/uL Sodium (137-145) mmol/L Potassium (3.5-5.1) mmol/L Chloride (98-107) mmol/L Carbon Dioxide (22-30) mmol/L Anion Gap mmol/L BUN (7-17) mg/dL Creatinine (0.52-1.04) mg/dL Est GFR (CKD-EPI)AfAm (>60 ml/min/1.73 sqM) Est GFR (CKD-EPI)NonAf (>60 ml/min/1.73 sqM) Glucose (74-99) mg/dL Calcium (8.4-10.2) mg/dL Total Bilirubin (0.2-1.3) mg/dL AST (14-36) U/L ALT (4-34) U/L Alkaline Phosphatase (38-126) U/L Troponin I <0.012 (0.000-0.034) ng/mL Total Protein (6.3-8.2) g/dL Albumin (3.5-5.0) g/dL Urine Color Urine Appearance (Clear) Urine pH (5.0-8.0) Ur Specific [place] (1.001-1.035) Urine Protein (Negative) Urine Glucose (UA) (Negative) Urine Ketones (Negative) Urine Blood (Negative) Urine Nitrite (Negative) Urine Bilirubin (Negative) Urine Urobilinogen (<2.0) mg/dL Ur Leukocyte Esterase (Negative) Urine HCG, Qual Not Detected (Not Detectd) Coronavirus (PCR) Not Detected (Not Detectd) Disposition Clinical Impression: Light headedness, Transaminitis Disposition: HOME SELF-CARE Condition: Stable Instructions (If sedation given, give patient instructions): Near Syncope (ED), Lightheadedness (ED) Additional Instructions: Follow with her primary care physician . Please return to the Emergency Department if symptoms worsen or any other concerns. Is patient prescribed a controlled substance at d/c from ED?: No Referrals: Reanna Patton III, MD [Primary Care Provider] - 1-2 days Time of Disposition: 16:54
--- NOTE | 2021-04-09 15:49 | XR ---
EXAMINATION TYPE: XR chest 2V DATE OF EXAM: 04/09/2021 COMPARISON: February 11, 2021 HISTORY: Cough TECHNIQUE: 2 views FINDINGS: Heart and mediastinum are normal. Lungs are clear. Diaphragm is normal. Bony thorax appears normal. IMPRESSION: Normal chest. No change.
[2021-04-09 16:12] LABS: Appearance,Urine Clear (Clear); Bilirubin,Urine Negative (Negative); Blood,Urine Negative (Negative); Color,Urine Light Yellow; Glucose,Urine (UA) Negative (Negative); Ketones,Urine Negative (Negative); Leukocyte Esterase,Urine Negative (Negative); Nitrite,Urine Negative (Negative); Protein,Urine Negative (Negative); Specific Gravity,Urine 1.005 (1.001-1.035); Urobilinogen,Urine <2.0 mg/dL (<2.0)
[2021-04-09 16:14] LABS: Basophils # (A) 0.1 k/uL (0-0.2); Basophils % (A) 1 %; Eosinophils # (A) 0.3 k/uL (0-0.7); Eosinophils % (A) 4 %; HGB 14.3 gm/dL (11.4-16.0); Lymphocytes # (A) 1.6 k/uL (1.0-4.8); Lymphocytes % (A) 24 %; MCH 28.3 pg (25.0-35.0); MCHC 34.2 g/dL (31.0-37.0); MCV 82.9 fL (80.0-100.0); Mean Platelet Volume 6.9; Monocytes # (A) 0.5 k/uL (0-1.0); Monocytes % (A) 8 %; Neutrophils # (A) 4.1 k/uL (1.3-7.7); Neutrophils % (A) 62 %; Platelet Count 337 k/uL (150-450); RBC 5.07 m/uL (3.80-5.40); RDW 14.1 % (11.5-15.5); WBC 6.6 k/uL (3.8-10.6)
[2021-04-09 16:22] LABS: ALT 56 U/L (4-34); AST 65 U/L (14-36); African American GFR (CKD) >90 (>60 ml/min/1.73 sqM); Alkaline Phosphatase 84 U/L (38-126); Anion Gap 6 mmol/L; Blood Urea Nitrogen 5 mg/dL (7-17); Calcium 9.6 mg/dL (8.4-10.2); Carbon Dioxide 29 mmol/L (22-30); Chloride 103 mmol/L (98-107); Glucose 93 mg/dL (74-99); Non-African American GFR(CKD) >90 (>60 ml/min/1.73 sqM); Potassium 4.7 mmol/L (3.5-5.1); Sodium 138 mmol/L (137-145); Total Bilirubin 0.6 mg/dL (0.2-1.3)
[2021-04-09 17:11] VITALS: BP 144/79; PULSE 84; RESP 18; TEMP 98.4
== END 2021-04-09 17:18 | disposition home or self-care (01) ==
LOC: EC 14:42
DX: R42 Dizziness and giddiness (principal); R74.01 Elevation of levels of liver transaminase levels; R05 Cough; R19.7 Diarrhea, unspecified; R11.0 Nausea; M79.7 Fibromyalgia; F41.9 Anxiety disorder, unspecified
CPT/HCPCS: 36415; 71046; 80053; 81003; 81025; 84484; 85025; 87635; 93005; 99284

== ENCOUNTER 2021-06-03 01:33 | Emergency (ER) | payer OTHER ==
[2021-06-03 01:40] VITALS: TEMP 98.4
[2021-06-03] MEDS ORDERED: SODIUM CHLORIDE 0.9% 1,000 ML IV STA (01:56)
[2021-06-03 02:30] LABS: Basophils # (A) 0.1 k/uL (0-0.2); Basophils % (A) 1 %; Eosinophils # (A) 0.2 k/uL (0-0.7); Eosinophils % (A) 3 %; HCT 41.8 % (34.0-46.0); Lymphocytes # (A) 2.2 k/uL (1.0-4.8); Lymphocytes % (A) 23 %; MCH 29.1 pg (25.0-35.0); MCHC 33.5 g/dL (31.0-37.0); MCV 86.8 fL (80.0-100.0); Mean Platelet Volume 7.3; Monocytes # (A) 0.6 k/uL (0-1.0); Monocytes % (A) 6 %; Neutrophils # (A) 6.3 k/uL (1.3-7.7); Neutrophils % (A) 66 %; Platelet Count 338 k/uL (150-450); RBC 4.81 m/uL (3.80-5.40); RDW 13.3 % (11.5-15.5); WBC 9.6 k/uL (3.8-10.6)
--- NOTE | 2021-06-03 02:32 | ED ---
SOB HPI - General Chief Complaint: Shortness of Breath Stated Complaint: AIXA Time Seen by Provider: 06/03/21 01:43 Source: patient Mode of arrival: wheelchair - History of Present Illness Initial Comments: 46-year-old female presenting to the emergency department with a chief complaint shortness of breath. Patient reports increased exertional dyspnea over the last 3 days. She reports an intermittent dry cough but nothing of significance. States she has never been diagnosed with asthma but she believes that she has it. She denies any associated wheezing. Reports midsternal chest pain without radiation that appears to be pleuritic in nature. It also appears to be chest a bit whenever she is laying supine. Patient denies any fevers or chills. Not on control. No history of DVT or PE. - Related Data Home Medications Medication Instructions Recorded Confirmed Levothyroxine Sodium [Synthroid] 75 mcg PO DAILY 07/25/14 04/09/21 Albuterol Sulfate [Proair Hfa] 2 puff INHALATION RT-QID PRN 04/09/21 04/09/21 Ergocalciferol (Vitamin D2) 1,250 mcg PO MO 04/09/21 04/09/21 [Drisdol (50,000 Iu)] Allergies Allergy/AdvReac Type Severity Reaction Status Date / Time azithromycin Allergy Rash/Hives Verified 06/03/21 01:40 methylphenidate HCl Allergy Rash/Hives Verified 06/03/21 01:40 [From Ritalin] erythromycin base AdvReac Nausea & Verified 06/03/21 01:40 [Erythromycin Base] Vomiting gabapentin AdvReac Hallucinati Verified 06/03/21 01:40 ons hydrocodone AdvReac Nausea & Verified 06/03/21 01:40 Vomiting zolpidem tartrate AdvReac Nausea & Verified 06/03/21 01:40 [From Ambien] Vomiting Review of Systems ROS Statement: Those systems with pertinent positive or pertinent negative responses have been documented in the HPI. ROS Other: All systems not noted in ROS Statement are negative. Past Medical History Past Medical History: Blood Disorder, Fibromyalgia, Pneumonia, Skin Disorder, Thyroid Disorder Additional Past Medical History / Comment(s): migraines, IRON DEFICIENCY ANEMIA- gets iron infusions, varicose veins, IBS, eczema, hypoglycemia, "slightly leaky bladder" History of Any Multi-Drug Resistant Organisms: MRSA Date of last positivie culture/infection: childhood MDRO Source:: left hip-no sure of organism but staph infections Past Surgical History: Adenoidectomy, Orthopedic Surgery, Tonsillectomy Additional Past Surgical History / Comment(s): ganglion cyst removed right wrist, abcess drained left hip Past Anesthesia/Blood Transfusion Reactions: Motion Sickness Past Psychological History: Anxiety Smoking Status: Never smoker Past Alcohol Use History: None Reported Past Drug Use History: None Reported - Past Family History Mother Family Medical History: Pulmonary Embolus General Exam Limitations: no limitations General appearance: alert, in no apparent distress Head exam: Present: atraumatic, normocephalic, normal inspection Eye exam: Present: normal appearance, PERRL, EOMI Pupils: Present: normal accommodation ENT exam: Present: normal exam, normal oropharynx, mucous membranes moist Neck exam: Present: normal inspection, full ROM. Absent: tenderness, lymphadenopathy Respiratory exam: Present: normal lung sounds bilaterally. Absent: respiratory distress, wheezes, rales, rhonchi, stridor Cardiovascular Exam: Present: regular rate, normal rhythm, normal heart sounds. Absent: diastolic murmur GI/Abdominal exam: Present: soft. Absent: distended, tenderness, guarding Extremities exam: Present: normal inspection, full ROM, normal capillary refill. Absent: tenderness, pedal edema, joint swelling Back exam: Present: normal inspection, full ROM. Absent: tenderness, CVA tenderness (R), CVA tenderness (L) Neurological exam: Present: alert, oriented X3 Psychiatric exam: Present: normal affect, normal mood Skin exam: Present: warm, dry, intact, normal color Course Vital Signs 06/03/21 01:36 Temperature 98.4 F Pulse Rate 82 Respiratory 19 Rate Blood Pressure 154/86 O2 Sat by Pulse 99 Oximetry Medical Decision Making - Medical Decision Making 46-year-old female presents emergency Department with a chief complaint of shortness of breath. On physical examination, patient does not appear to be any respiratory distress. Vital signs are within normal limits. Chest x-ray is unremarkable. Laboratory work shows no acute findings. Negative initial trop onin. Negative d-dimer ankle is within normal limits. EKG appears to be similar to her most recent 2 months ago. Patient was advised to follow with the primary care physician. Strict return parameters were thoroughly discussed with patient was upsetting agreeable. Case discussed physician. - Lab Data Result diagrams: 06/03/21 02:22 06/03/21 02:22 Lab Results 06/03/21 06/03/21 06/03/21 Range/Units 02:22 02:22 02:22 WBC 9.6 (3.8-10.6) k/uL RBC 4.81 (3.80-5.40) m/uL Hgb 14.0 (11.4-16.0) gm/dL Hct 41.8 (34.0-46.0) % MCV 86.8 (80.0-100.0) fL MCH 29.1 (25.0-35.0) pg MCHC 33.5 (31.0-37.0) g/dL RDW 13.3 (11.5-15.5) % Plt Count 338 (150-450) k/uL MPV 7.3 Neutrophils % 66 % Lymphocytes % 23 % Monocytes % 6 % Eosinophils % 3 % Basophils % 1 % Neutrophils # 6.3 (1.3-7.7) k/uL Lymphocytes # 2.2 (1.0-4.8) k/uL Monocytes # 0.6 (0-1.0) k/uL Eosinophils # 0.2 (0-0.7) k/uL Basophils # 0.1 (0-0.2) k/uL PT 9.7 (9.0-12.0) sec INR 0.9 (<1.2) APTT 22.9 (22.0-30.0) sec D-Dimer 0.54 (<0.60) mg/L FEU Sodium 140 (137-145) mmol/L Potassium 4.2 (3.5-5.1) mmol/L Chloride 104 (98-107) mmol/L Carbon Dioxide 29 (22-30) mmol/L Anion Gap 7 mmol/L BUN 4 L (7-17) mg/dL Creatinine 0.69 (0.52-1.04) mg/dL Est GFR (CKD-EPI)AfAm >90 (>60 ml/min/1.73 sqM) Est GFR (CKD-EPI)NonAf >90 (>60 ml/min/1.73 sqM) Glucose 110 H (74-99) mg/dL Calcium 9.4 (8.4-10.2) mg/dL Total Bilirubin 0.4 (0.2-1.3) mg/dL AST 39 H (14-36) U/L ALT 39 H (4-34) U/L Alkaline Phosphatase 93 (38-126) U/L Troponin I (0.000-0.034) ng/mL Total Protein 6.9 (6.3-8.2) g/dL Albumin 4.0 (3.5-5.0) g/dL 06/03/21 Range/Units 02:22 WBC (3.8-10.6) k/uL RBC (3.80-5.40) m/uL Hgb (11.4-16.0) gm/dL Hct (34.0-46.0) % MCV (80.0-100.0) fL MCH (25.0-35.0) pg MCHC (31.0-37.0) g/dL RDW (11.5-15.5) % Plt Count (150-450) k/uL MPV Neutrophils % % Lymphocytes % % Monocytes % % Eosinophils % % Basophils % % Neutrophils # (1.3-7.7) k/uL Lymphocytes # (1.0-4.8) k/uL Monocytes # (0-1.0) k/uL Eosinophils # (0-0.7) k/uL Basophils # (0-0.2) k/uL PT (9.0-12.0) sec INR (<1.2) APTT (22.0-30.0) sec D-Dimer (<0.60) mg/L FEU Sodium (137-145) mmol/L Potassium (3.5-5.1) mmol/L Chloride (98-107) mmol/L Carbon Dioxide (22-30) mmol/L Anion Gap mmol/L BUN (7-17) mg/dL Creatinine (0.52-1.04) mg/dL Est GFR (CKD-EPI)AfAm (>60 ml/min/1.73 sqM) Est GFR (CKD-EPI)NonAf (>60 ml/min/1.73 sqM) Glucose (74-99) mg/dL Calcium (8.4-10.2) mg/dL Total Bilirubin (0.2-1.3) mg/dL AST (14-36) U/L ALT (4-34) U/L Alkaline Phosphatase (38-126) U/L Troponin I <0.012 (0.000-0.034) ng/mL Total Protein (6.3-8.2) g/dL Albumin (3.5-5.0) g/dL - EKG Data EKG Comments: Inverted T waves in lead 3, sinus rhythm A total rate 72,. 140, QRS 72, QTC 431. Disposition Clinical Impression: Dyspnea Disposition: HOME SELF-CARE Condition: Stable Instructions (If sedation given, give patient instructions): Dyspnea (ED) Additional Instructions: Follow with primary care physician. Return to emergency department if symptoms worsen. Is patient prescribed a controlled substance at d/c from ED?: No Referrals: Reanna Patton III, MD [Primary Care Provider] - 1-2 days Time of Disposition: 03:12
[2021-06-03 02:40] LABS: ALT 39 U/L (4-34); AST 39 U/L (14-36); African American GFR (CKD) >90 (>60 ml/min/1.73 sqM); Alkaline Phosphatase 93 U/L (38-126); Anion Gap 7 mmol/L; Blood Urea Nitrogen 4 mg/dL (7-17); Calcium 9.4 mg/dL (8.4-10.2); Carbon Dioxide 29 mmol/L (22-30); Chloride 104 mmol/L (98-107); Glucose 110 mg/dL (74-99); Non-African American GFR(CKD) >90 (>60 ml/min/1.73 sqM); Potassium 4.2 mmol/L (3.5-5.1); Sodium 140 mmol/L (137-145); Total Bilirubin 0.4 mg/dL (0.2-1.3); Total Protein 6.9 g/dL (6.3-8.2)
--- NOTE | 2021-06-03 02:46 | XR ---
EXAMINATION TYPE: XR chest 2V DATE OF EXAM: 06/03/2021 COMPARISON: 04/09/2021 HISTORY: Cough TECHNIQUE: 2 views FINDINGS: Heart and mediastinum are normal. Lungs are clear. Diaphragm is normal. Bony thorax is inta ct. IMPRESSION: Normal chest. No change.
[2021-06-03 02:57] LABS: INR 0.9 (<1.2); Partial Thromboplastin Time 22.9 sec (22.0-30.0); Prothrombin Time 9.7 sec (9.0-12.0)
[2021-06-03 03:41] VITALS: BP 134/78; PULSE 73; RESP 16
== END 2021-06-03 03:41 | disposition home or self-care (01) ==
LOC: EC 01:33
DX: R06.00 Dyspnea, unspecified (principal); Z79.890 Hormone replacement therapy; Z79.51 Long term (current) use of inhaled steroids; Z88.1 Allergy status to other antibiotic agents; Z88.5 Allergy status to narcotic agent; Z88.8 Allergy status to other drugs, medicaments and biological substances
CPT/HCPCS: 36415; 71046; 80053; 84484; 85025; 85379; 85610; 85730; 93005; 96360; 99284

== ENCOUNTER 2022-06-10 20:44 | Emergency (ER) | payer OTHER ==
[2022-06-10 20:52] VITALS: BP 144/74; PULSE 98; RESP 18; TEMP 98.6
[2022-06-10] MEDS ORDERED: KETOROLAC 15 MG/ML 1 ML VIAL IM STA (21:05)
[2022-06-10] MEDS ORDERED: Acetaminophen-Codeine 300-30mg TAB PO STA (21:05)
[2022-06-10] MEDS ORDERED: ORPHENADRINE 30 MG/ML 2 ML VIAL IM STA (21:05)
[2022-06-10] MEDS ORDERED: ACET/COD 300 MG/30 MG STARTER PACK 6 TAB BTL PO STA (21:07)
--- NOTE | 2022-06-10 21:11 | ED ---
Back Pain HPI - General Chief Complaint: Back Pain/Injury Stated Complaint: BACK PAIN Time Seen by Provider: 06/10/22 20:59 Source: patient, RN notes reviewed Limitations: no limitations - History of Present Illness Initial Comments: This is a pleasant 47-year-old female with a history of chronic recurrent low back pain. She presents to the emergency department complaining of back pain in the mid lower thoracic to upper lumbar area. This more on the right paraspinal area. Denies any injury. No recent surgeries. No instrumentation. No immunosuppression. No frontal bowel movements or urination. Pain is sharp and exacerbated by twisting and bending. No abdominal pain. No numbness or tingling. No radiation No headache, no fever or chills, no changes in vision or hearing, no sore throat or difficulty with speech, no neck pain, no chest pain or shortness of breath, no abdominal pain, no nausea or vomiting, no changes in urination or bowel movements, no numbness or tingling, no extremity pain, no skin rashes or lesions. Past medical, surgical, social, and family history reviewed. MD Complaint: back pain - Related Data Home Medications Medication Instructions Recorded Confirmed Levothyroxine Sodium [Synthroid] 75 mcg PO DAILY 07/25/14 04/09/21 Albuterol Sulfate [Proair Hfa] 2 puff INHALATION RT-QID PRN 04/09/21 04/09/21 Ergocalciferol (Vitamin D2) 1,250 mcg PO MO 04/09/21 04/09/21 [Drisdol (50,000 Iu)] Previous Rx's Medication Instructions Recorded Albuterol Nebulized [Ventolin 2.5 mg INHALATION Q4H PRN #25 nebu 06/03/21 Nebulized] tiZANidine [Zanaflex] 4 mg PO Q6HR PRN #24 tab 06/10/22 Allergies Allergy/AdvReac Type Severity Reaction Status Date / Time azithromycin Allergy Rash/Hives Verified 06/10/22 20:52 methylphenidate HCl Allergy Rash/Hives Verified 06/10/22 20:52 [From Ritalin] erythromycin base AdvReac Nausea & Verified 06/10/22 20:52 [Erythromycin Base] Vomiting gabapentin AdvReac Hallucinati Verified 06/10/22 20:52 ons hydrocodone AdvReac Nausea & Verified 06/10/22 20:52 Vomiting zolpidem tartrate AdvReac Nausea & Verified 06/10/22 20:52 [From Ambien] Vomiting Review of Systems ROS Statement: Those systems with pertinent positive or pertinent negative responses have been documented in the HPI. ROS Other: All systems not noted in ROS Statement are negative. Past Medical History Past Medical History: Blood Disorder, Fibromyalgia, Pneumonia, Skin Disorder, Thyroid Disorder Additional Past Medical History / Comment(s): migraines, IRON DEFICIENCY ANEMIA- gets iron infusions, varicose veins, IBS, eczema, hypoglycemia, "slightly leaky bladder" History of Any Multi-Drug Resistant Organisms: MRSA Date of last positivie culture/infection: childhood MDRO Source:: left hip-no sure of organism but staph infections Past Surgical History: Adenoidectomy, Orthopedic Surgery, Tonsillectomy Additional Past Surgical History / Comment(s): ganglion cyst removed right wrist, abcess drained left hip Past Anesthesia/Blood Transfusion Reactions: Motion Sickness Past Psychological History: Anxiety Smoking Status: Never smoker Past Alcohol Use History: None Reported Past Drug Use History: None Reported - Past Family History Mother Family Medical History: Pulmonary Embolus General Exam - General Exam Comments Initial Comments: Nontoxic appearing female in no acute distress. Limitations: no limitations General appearance: obese Head exam: Present: atraumatic, normocephalic, normal inspection Eye exam: Present: normal appearance, PERRL, EOMI. Absent: scleral icterus, conjunctival injection, periorbital swelling ENT exam: Present: normal exam, mucous membranes moist Neck exam: Present: normal inspection, tenderness, full ROM Respiratory exam: Present: normal lung sounds bilaterally. Absent: respiratory distress, wheezes, rales, rhonchi, stridor Cardiovascular Exam: Present: regular rate, normal rhythm, normal heart sounds. Absent: systolic murmur, diastolic murmur, rubs, gallop, clicks GI/Abdominal exam: Present: soft. Absent: tenderness Extremities exam: Present: normal inspection, full ROM, normal capillary refill. Absent: tenderness, pedal edema, joint swelling, calf tenderness Back exam: Present: normal inspection, tenderness, paraspinal tenderness (Right lower thoracic and upper lumbar). Absent: full ROM (Range of motion limited by pain with regards to Fort flexion at about 60.), CVA tenderness (R), CVA tenderness (L), muscle spasm, vertebral tenderness, rash noted Neurological exam: Present: alert, oriented X3, CN II-XII intact, normal gait, motor sensory deficit (Straight leg raise negative bilaterally. DTRs intact, great toe extensor strength +5 out of 5) Psychiatric exam: Present: normal affect, normal mood Skin exam: Present: warm, dry, intact, normal color. Absent: rash Course Vital Signs 06/10/22 20:50 Temperature 98.6 F Pulse Rate 98 Respiratory 18 Rate Blood Pressure 144/74 O2 Sat by Pulse 98 Oximetry Medical Decision Making - Medical Decision Making -There are no red flags for concerning back pathology. Specifically: -No history of cancer, this is not a mass effect, MRI not indicated. -No anticoagulation, this is not a bleed. -No fevers, no IVDU, this is not an infectious process. -No trauma, no bony pain, x-rays are not indicated. -With a normal neuro exam, and no urinary or bowel retention or incontinence, there is no clinical sign of motor defect or cauda equina - MRI is not indicated at this point. -No pulsating abdominal mass or risk factors for AAA. -Pain is relieved with rest, which is also less concerning. -I do not believe that x-rays or emergent MRI is indicated at this time. -We will treat symptomatically and discharge home with follow up instructions. -Stretching/strengthening exercise given to patient and they will be referred to physical therapy -Patient is instructed to use [id number] analgesics as directed on packaging for pain. Patient was told to return to the ER for any signs or symptoms worsen. Told to return immediately if any other problems arise. All questions answered. Treatment plan discussed. Patient in agreement Every effort has been made to ensure accuracy of this dictation. However, due to the limitations of electronic medical records and dictation devices, errors in charting still occur. Patient given a Tylenol with Codeine starter pack, given ketorolac and Norflex here. We'll switch her from methocarbamol to Zanaflex. Follow-up with regular physician. Diploma Maker Dr. Quesada Disposition Clinical Impression: Acute exacerbation of chronic low back pain Disposition: HOME SELF-CARE Condition: Stable Instructions (If sedation given, give patient instructions): Acute Low Back Pain (ED) Additional Instructions: Follow-up with your regular physician as directed. Return to the ER immediately if any symptoms worsen, new symptoms arise, or any other problems develop. Is patient prescribed a controlled substance at d/c from ED?: No Referrals: Reanna Patton III, MD [Primary Care Provider] - 06/15/22 Time of Disposition: 21:07
== END 2022-06-10 21:32 | disposition home or self-care (01) ==
LOC: EC 20:44
DX: G89.29 Other chronic pain (principal); M54.50 Low back pain, unspecified; E07.9 Disorder of thyroid, unspecified; Z88.1 Allergy status to other antibiotic agents; Z88.8 Allergy status to other drugs, medicaments and biological substances; Z88.5 Allergy status to narcotic agent; Z79.890 Hormone replacement therapy
CPT/HCPCS: 99283; 96372; J2360; J1885

== ENCOUNTER → 2023-02-09 | Outpatient (CLI) | payer OTHER ==
--- NOTE | 2023-02-09 14:17 | US ---
EXAMINATION TYPE: US extremity nonvasc mass LT DATE OF EXAM: 02/09/2023 COMPARISON: NONE CLINICAL HISTORY: R22.32 SWELLING/MASS AND LUMP. pt has a soft tissue palpable area at the upper unde r arm near armpit that she first noticed 2 wks ago, a bit tender, no known trauma, no bruising TECHNIQUE: scanned over the patient's area of concern and also imaged contralateral side for compari son FINDINGS: No abnormality seen by ultrasound at the pt's stated area of concern. IMPRESSION: No discrete abnormality seen. Correlate clinically.
--- NOTE | 2023-02-12 19:21 | MM ---
Reason for Exam: Screening (asymptomatic). Last mammogram was performed 5 year(s) and 2 month(s) ago. Patient History: Menarche at age 14. Patient has no children. Premenopausal. Risk Values: Taryn 5 year model risk: 0.9%. NCI Lifetime model risk: 10.5%. Prior Study Comparison: 12/06/2017 Bilateral Screening Mammogram, [facility]. 06/04/2018 Left Diagnostic Mammogram, [facility]. Tissue Density: The breast tissue is heterogeneously dense. This may lower the sensitivity of mammography. Findings: Analyzed By CAD. There is no suspicious group of microcalcifications or new suspicious mass in either breast. Overall Assessment: Negative, BI-RAD 1 Management: Screening Mammogram of both breasts in 1 year. 1. Patient should continue monthly self breast exams. 2. A clinical breast exam by your physician is recommended on an annual basis. 3. This exam should not preclude additional follow-up of suspicious palpable abnormalities. Electronically signed and approved by: Eve Harrison M.D. Radiologist
== END | disposition home or self-care (01) ==
LOC: RADMAMWWP 13:24
PROVIDERS: ATTEND Family Medicine
DX: Z12.31 Encounter for screening mammogram for malignant neoplasm of breast (principal); R22.32 Localized swelling, mass and lump, left upper limb
CPT/HCPCS: 77063; 77067

== ENCOUNTER 2023-04-18 19:49 | Emergency (ER) | payer OTHER ==
[2023-04-18 20:11] VITALS: PULSE 89; RESP 18; TEMP 97.9
--- NOTE | 2023-04-18 20:55 | XR ---
EXAMINATION TYPE: XR chest 2V DATE OF EXAM: 04/18/2023 8:23 PM COMPARISON: Chest radiographs from 06/03/2021 TECHNIQUE: XR chest 2V Frontal and lateral views of the chest. CLINICAL INDICATION:Female, 48 years old with history of upper resp; FINDINGS: Lungs/Pleura: There is no evidence of pleural effusion, focal consolidation, or pneumothorax. Pulmonary vascularity: Unremarkable. Heart/mediastinum: Cardiomediastinal silhouette is unremarkable. Musculoskeletal: No acute osseous pathology. IMPRESSION: No acute cardiopulmonary disease/process.
[2023-04-18] MEDS ORDERED: predniSONE 20 MG TAB PO STA (22:47)
[2023-04-18] MEDS ORDERED: DOXYCYCLINE 100 MG CAP PO STA (22:47)
[2023-04-18] MEDS ORDERED: ALBUTEROL HFA INHALER INHALATION STA (22:47)
--- NOTE | 2023-04-18 22:50 | ED ---
General Adult HPI - General Chief complaint: Upper Respiratory Infection Stated complaint: SOB Time Seen by Provider: 04/18/23 21:39 Source: patient, RN notes reviewed, old records reviewed Mode of arrival: ambulatory Limitations: no limitations - History of Present Illness Initial comments: Patient is a 48-year-old female with past medical history remarkable for prior reactive airway disease with inhaler at home who presents emergency Department complaining of a nonproductive cough. Has been ongoing for multiple days. Does not seem to be improved. Cough is nonproductive. States she feels like she is wheezing. Denies any headaches or fevers. No known sick contacts. No rhinorrhea. No sore throat. Presents for further evaluation of this time. Denies chest pain or abdominal pain. His no nausea, vomiting, diarrhea. Workup was started in triage. - Related Data Home Medications Medication Instructions Recorded Confirmed Levothyroxine Sodium [Synthroid] 75 mcg PO DAILY 07/25/14 09/14/22 Albuterol Sulfate [Proair Hfa] 2 puff INHALATION RT-QID PRN 04/09/21 09/14/22 Ergocalciferol (Vitamin D2) 1,250 mcg PO MO 04/09/21 09/14/22 [Drisdol (50,000 Iu)] Previous Rx's Medication Instructions Recorded Albuterol Nebulized [Ventolin 2.5 mg INHALATION Q4H PRN #25 nebu 06/03/21 Nebulized] Albuterol Inhaler [Ventolin Hfa 1 puff INHALATION QID #8 gm 04/18/23 Inhaler] Doxycycline Hyclate 100 mg PO BID 7 Days #14 cap 04/18/23 predniSONE [Deltasone] 40 mg PO DAILY 5 Days #10 tab 04/18/23 Allergies Allergy/AdvReac Type Severity Reaction Status Date / Time azithromycin Allergy Rash/Hives Verified 04/18/23 20:11 methylphenidate HCl Allergy Rash/Hives Verified 04/18/23 20:11 [From Ritalin] erythromycin base AdvReac Nausea & Verified 04/18/23 20:11 [Erythromycin Base] Vomiting gabapentin AdvReac Hallucinati Verified 04/18/23 20:11 ons hydrocodone AdvReac Nausea & Verified 04/18/23 20:11 Vomiting zolpidem tartrate AdvReac Nausea & Verified 04/18/23 20:11 [From Ambien] Vomiting Review of Systems ROS Statement: Those systems with pertinent positive or pertinent negative responses have been documented in the HPI. Review of Systems: CONST: Denies fever EYES: Denies blurry vision ENT: Denies nasal congestion C/V: Denies Chest pain RESP: Endorses cough GI: Denies abdominal pain : Denies dysuria SKIN: Denies rash. MSK: Denies joint pain. NEURO: Denies headache ROS Other: All systems not noted in ROS Statement are negative. Past Medical History Past Medical History: Blood Disorder, Fibromyalgia, Pneumonia, Skin Disorder, Thyroid Disorder Additional Past Medical History / Comment(s): migraines, IRON DEFICIENCY ANEMIA- gets iron infusions, varicose veins, IBS, eczema, hypoglycemia, "slightly leaky bladder" History of Any Multi-Drug Resistant Organisms: MRSA Date of last positivie culture/infection: childhood MDRO Source:: left hip-no sure of organism but staph infections Past Surgical History: Adenoidectomy, Orthopedic Surgery, Tonsillectomy Additional Past Surgical History / Comment(s): ganglion cyst removed right wrist, abcess drained left hip Past Anesthesia/Blood Transfusion Reactions: Motion Sickness Past Psychological History: Anxiety Smoking Status: Never smoker Past Alcohol Use History: Rare Past Drug Use History: None Reported - Past Family History Mother Family Medical History: Pulmonary Embolus General Exam - General Exam Comments Initial Comments: General: Appears in no acute distress. HEAD: Normal with no signs of head trauma. EYES: EOMI ENT: Hearing grossly intact, normal oropharynx. RESPIRATORY: Some mild central wheezing but no significant bilateral wheezing. Clear breath sounds bilaterally overall. No hypoxia. No increased work of breathing. C/V: Regular rate and rhythm. S1 and S2 auscultated. Peripheral pulses 2+ and intact throughout. ABD: Abd is soft, nontender, nondistended EXT: No obvious deformity SKIN: No rashes or lesions observed on exposed skin. NEURO: Alert and oriented 4. Limitations: no limitations Course Vital Signs 04/18/23 04/18/23 20:07 23:38 Temperature 97.9 F Pulse Rate 89 89 Respiratory 18 18 Rate Blood Pressure 146/91 139/82 O2 Sat by Pulse 97 94 L Oximetry Medical Decision Making - Medical Decision Making Was pt. sent in by a medical professional or institution (, PA, GRID CASTER, urgent care, hospital, or fci...) When possible be specific @ -No Did you speak to anyone other than the patient for history (EMS, parent, family, police, friend...)? What history was obtained from this source @ -No Did you review nursing and triage notes (agree or disagree)? Why? @ -I reviewed and agree with nursing and triage notes Were old charts reviewed (outside hosp., previous admission, EMS record, old EKG, old radiological studies, urgent care reports/EKG's, fci records)? Report findings @ -No old charts were reviewed Differential Diagnosis (chest pain, altered mental status, abdominal pain women, abdominal pain men, vaginal bleeding, weakness, fever, dyspnea, syncope, headache, dizziness, GI bleed, back pain, seizure, CVA, palpatations, mental health, musculoskeletal)? @ -Bronchitis, URI, viral syndrome, pneumonia. As this is not all inclusive. EKG interpreted by me (3pts min.). @ -None done X-rays interpreted by me (1pt min.). @ -Chest x-ray reveals no obvious acute cardiopulmonary process, infiltrate. CT interpreted by me (1pt min.). @ -None done U/S interpreted by me (1pt. min.). @ -None done What testing was considered but not performed or refused? (CT, X-rays, U/S, labs)? Why? @ -None What meds were considered but not given or refused? Why? @ -None Did you discuss the management of the patient with other professionals (bay meng i.e. , PA, GRID CASTER, lab, RT, psych nurse, social media content specialist, it trainer, teacher, agricultural extension officer, caseworker intake)? Give summary @ -No Was smoking cessation discussed for >3mins.? @ -No Was critical care preformed (if so, how long)? @ -No Were there social determinants of health that impacted care today? How? (Homelessness, low income, unemployed, alcoholism, drug addiction, transportation, low edu. Level, literacy, decrease access to med. care, fpc, rehab)? @ -No Was there de-escalation of care discussed even if they declined (Discuss DNR or withdrawal of care, Hospice)? DNR status @ -No What co-morbidities impacted this encounter? (DM, HTN, Smoking, COPD, CAD, Cancer, CVA, ARF, Chemo, Hep., AIDS, mental health diagnosis, sleep apnea, morbid obesity)? @ -None Was patient admitted / discharged? Hospital course, mention meds given and route, prescriptions, significant lab abnormalities, going to OR and other pertinent info. @ -Based on the patient's presentation and physical exam, I'm concerned for upper respiratory infection for the patient. Chest x-ray was obtained in triage and was negative for any infectious process. We'll obtain viral sounds at this time. Vital signs within acceptable limits. She was in agreement this plan. Viral swabs are negative. We discussed she is likely experiencing bronchitis. Due to her history, patient will be started on prednisone, albuterol inhaler as well as empirically on antibiotics. She was in agreement with this plan. She'll be given doses prior to discharge. Strict return precautions discussed. I will provide the patient with a prescription for prednisone, doxycycline, albuterol inhaler. I instructed the patient to follow up with their PCP in the next 1-3 days.. I explained that the patient should return to the emergency department if they experience any worsening symptoms. Strict return precautions were discussed with the patient. The patient expressed understanding of these instructions. I answered all questions that the patient had. The patient was discharged home in good condition with their prescriptions and follow up information. Undiagnosed new problem with uncertain prognosis? @ -No Drug Therapy requiring intensive monitoring for toxicity (Heparin, Nitro, Insulin, Cardizem)? @ -No Were any procedures done? @ -No Diagnosis/symptom? @ -Arthritis, bronchospasm Acute, or Chronic, or Acute on Chronic? @ -Acute Uncomplicated (without systemic symptoms) or Complicated (systemic symptoms)? @ -Uncomplicated Side effects of treatment? @ -No Exacerbation, Progression, or Severe Exacerbation? @ -No Poses a threat to life or bodily function? How? (Chest pain, [place], [place], pneumonia, PE, COPD, DKA, ARF, appy, cholecystitis, CVA, Diverticulitis, Homicidal, Suicidal, threat to staff... and all critical care pts) @ -No - Lab Data Lab Results 04/18/23 Range/Units 21:32 Influenza Type A (PCR) Not Detected (Not Detectd) Influenza Type B (PCR) Not Detected (Not Detectd) RSV (PCR) Not Detected (Not Detectd) SARS-CoV-2 (PCR) Not Detected (Not Detectd) Disposition Clinical Impression: Bronchitis, Bronchospasm Disposition: HOME SELF-CARE Condition: Good Instructions (If sedation given, give patient instructions): Acute Bronchitis (ED) Prescriptions: predniSONE [Deltasone] 40 mg PO DAILY 5 Days #10 tab Doxycycline Hyclate 100 mg PO BID 7 Days #14 cap Albuterol Inhaler [Ventolin Hfa Inhaler] 1 puff INHALATION QID #8 gm Is patient prescribed a controlled substance at d/c from ED?: No Referrals: Reanna Patton III, MD [Primary Care Provider] - 1-2 days Time of Disposition: 22:45
[2023-04-18 23:40] VITALS: BP 139/82
== END 2023-04-18 23:54 | disposition home or self-care (01) ==
LOC: EC 19:49
DX: J40 Bronchitis, not specified as acute or chronic (principal); J98.01 Acute bronchospasm; E07.9 Disorder of thyroid, unspecified; Z79.890 Hormone replacement therapy; Z88.1 Allergy status to other antibiotic agents; Z88.5 Allergy status to narcotic agent; Z88.8 Allergy status to other drugs, medicaments and biological substances; Z86.59 Personal history of other mental and behavioral disorders; Z20.822 Contact with and (suspected) exposure to COVID-19
CPT/HCPCS: 94640; 87636; 71046; 99285; J7512

== ENCOUNTER 2024-05-23 14:52 | Emergency (ER) | payer OTHER ==
[2024-05-23 14:56] VITALS: RESP 16
--- NOTE | 2024-05-23 15:29 | ED ---
General Adult HPI - General Chief complaint: Chest Pain Stated complaint: chest pain, back pain Time Seen by Provider: 05/23/24 14:58 Source: patient Mode of arrival: ambulatory Limitations: no limitations - History of Present Illness Initial comments: Dictation was produced using [employer] dictation software. please excuse any grammatical, word or spelling errors. Chief Complaint: 49-year-old female past medical history of fibromyalgia, pneumonia thyroid disease. States that she is here today for chest pain History of Present Illness: Patient 49-year-old female presents to the emergency department for 3 days of substernal chest pressure and fatigue. Patient states that she currently has some symptoms at the bedside. Denies any associated naus ea. Pain is nonradiating. Denies any associated shortness of breath. She did report some calf cramping couple days ago. Patient has not hemoptysis. Pain is not worsened with movement or deep inspiration. Patient has no known history of cardiac disease. She does have some history of acute coronary syndrome in her uncles. The ROS documented in this emergency department record has been reviewed and confirmed by me. Those systems with pertinent positive or negative responses have been documented in the HPI. All other systems are other negative and/or noncontributory. - Related Data Home Medications Medication Instructions Recorded Confirmed Levothyroxine Sodium [Synthroid] 75 mcg PO DAILY 07/25/14 05/23/24 Ergocalciferol (Vitamin D2) 1,250 mcg PO TH 04/09/21 05/23/24 [Drisdol (50,000 Iu)] Hyoscyamine Sulfate [Levsin-Sl] 0.125 mg SL Q6H PRN 05/23/24 05/23/24 Meloxicam [Mobic] 15 mg PO DAILY PRN 05/23/24 05/23/24 Multivitamins, Thera [Multivitamin 1 tab PO DAILY 05/23/24 05/23/24 (formulary)] Ondansetron Odt [Zofran Odt] 4 mg PO DAILY PRN 05/23/24 05/23/24 Vitamin B-12(Unknown Dose) 1 tab PO DAILY 05/23/24 05/23/24 methocarbamoL [Robaxin] 500 - 1,000 mg PO Q6H PRN 05/23/24 05/23/24 Allergies Allergy/AdvReac Type Severity Reaction Status Date / Time azithromycin Allergy Rash/Hives Verified 05/23/24 18:43 erythromycin base Allergy Rash/Hives Verified 05/23/24 18:43 [Erythromycin Base] methylphenidate HCl Allergy Rash/Hives Verified 05/23/24 18:43 [From Ritalin] gabapentin AdvReac Hallucinati Verified 05/23/24 18:43 ons hydrocodone AdvReac Nausea & Verified 05/23/24 18:43 Vomiting zolpidem tartrate AdvReac Nausea & Verified 05/23/24 18:43 [From Ambien] Vomiting Review of Systems ROS Statement: Those systems with pertinent positive or pertinent negative responses have been documented in the HPI. ROS Other: All systems not noted in ROS Statement are negative. Past Medical History Past Medical History: Blood Disorder, Fibromyalgia, Pneumonia, Skin Disorder, Thyroid Disorder Additional Past Medical History / Comment(s): migraines, IRON DEFICIENCY ANEMIA- gets iron infusions, varicose veins, IBS, eczema, hypoglycemia, "slightly leaky bladder" History of Any Multi-Drug Resistant Organisms: MRSA Date of last positivie culture/infection: childhood MDRO Source:: left hip-no sure of organism but staph infections Past Surgical History: Adenoidectomy, Orthopedic Surgery, Tonsillectomy Additional Past Surgical History / Comment(s): ganglion cyst removed right wrist, abcess drained left hip Past Anesthesia/Blood Transfusion Reactions: Motion Sickness Past Psychological History: Anxiety Smoking Status: Never smoker Past Alcohol Use History: Rare Past Drug Use History: None Reported - Past Family History Mother Family Medical History: Pulmonary Embolus General Exam - General Exam Comments Initial Comments: PHYSICAL EXAM: General Impression: Alert and oriented x3, not in acute distress HEENT: Normocephalic atraumatic, extra-ocular movements intact, pupils equal and reactive to light bilaterally, mucous membranes moist. Cardiovascular: Heart regular rate and rhythm Chest: Able to complete full sentences, no retractions, no tachypnea Abdomen: abdomen soft, non-tender, non-distended, no organomegaly Musculoskeletal: Pulses present and equal in all extremities, no peripheral edema Motor: no focal deficits noted Neurological: CN II-XII grossly intact, no focal motor or sensory deficits noted Skin: Intact with no visualized rashes Psych: Normal affect and mood Limitations: no limitations Course Vital Signs 05/23/24 05/23/24 05/23/24 14:53 17:19 18:40 Temperature 97.8 F 98.2 F 97.7 F Pulse Rate 85 74 74 Respiratory 16 16 16 Rate Blood Pressure 133/86 144/76 126/76 O2 Sat by Pulse 97 99 97 Oximetry - Reevaluation(s) Reevaluation #1: 05/23/24 18:19Labs imaging were obtained found to be unremarkable. CT angiography is negative. First troponin is negative. Recommended to patient that best course of action is to admit patient to observation with consultation to cardiology for further testing. 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 She is however agreeable to a second troponin 3 hours after the first. EKG Findings - EKG Comments: EKG Findings:: My EKG interpretation: Ventricular rate 70, sinus rhythm,. 139, QRS 81, QTc 380. No VT prolongation, no QTC prolongation, no ST or T-wave changes noted. EKG compared to January 04, 2023 showing no changes. Overall, this EKG is unremarkable Medical Decision Making - Medical Decision Making Was pt. sent in by a medical professional or institution (, PA, VETERINARIAN, urgent care, hospital, or usp...) When possible be specific @ -No Did you speak to anyone other than the patient for history (EMS, parent, family, police, friend...)? What history was obtained from this source @ -No Did you review nursing and triage notes (agree or disagree)? Why? @ -I reviewed and agree with nursing and triage notes Were old charts reviewed (outside hosp., previous admission, EMS record, old EKG, old radiological studies, urgent care reports/EKG's, usp records)? Report findings @ -No old charts were reviewed Differential Diagnosis (chest pain, altered mental status, abdominal pain women, abdominal pain men, vaginal bleeding, musculoskeletal, weakness, fever, dyspnea, syncope, headache, dizziness, GI bleed, back pain, seizure, CVA, palpatations, mental health)? @ -Differential Chest Pain: Stable Angina, Unstable Angina, STEMI, NSTEMI Aortic Dissection, Pneumothorax, Musculoskeletal, Esophageal Spasm GERD, Cholecystitis, Pancreatitis, Zoster, this is not meant to be an all-inclusive list. EKG interpreted by me (3pts min.). @ -See above X-rays interpreted by me (1pt min.). @ -Two-view chest x-ray shows no acute processes CT interpreted by me (1pt min.). @ -CT angiography of the chest shows no PE U/S interpreted by me (1pt. min.). @ -None done What testing was considered but not performed or refused? (CT, X-rays, U/S, labs)? Why? @ -None What meds were considered but not given or refused? Why? @ -None Was smoking cessation discussed for >3mins.? @ -No Were there social determinants of health that impacted care today? How? (Homelessness, low income, unemployed, alcoholism, drug addiction, transportation, low edu. Level, literacy, decrease access to med. care, fdc, rehab)? @ -No Was there de-escalation of care discussed even if they declined (Discuss DNR or withdrawal of care, Hospice)? DNR status @ -No What co-morbidities impacted this encounter? (DM, HTN, Smoking, COPD, CAD, Cancer, CVA, ARF, Chemo, Hep., AIDS, mental health diagnosis, sleep apnea, morbid obesity)? @ -None Was patient admitted / discharged? Hospital course, mention meds given and route, prescriptions, significant lab abnormalities, going to OR and other rusti ne info. @ -49year-old female presents to the emergency department with chest pain concerning for acute coronary syndrome. Patient has moderate risk. Vital signs upon arrival are within acceptable limits. EKG is unremarkable. Patient well- appearing at the bedside. Laboratory evaluation obtained. Labs are within acceptable limits. Patient offered observation admission for cardiology consu ltation and further cardiac monitoring and care she states that she is unable to do so. Patient would like to have second troponin done to further stratify her risk. Second troponin is negative. Patient reevaluated bedside at 7:40 PM following stable condition. Patient given aspirin. Patient given strict return precautions otherwise she is given outpatient follow-up with cardiology. She is also told that she can follow-up with her primary care doctor. Did you discuss the management of the patient with other professionals (professionals i.e. , PA, VETERINARIAN, lab, RT, psych nurse, medical social consultant, staffing manager, teacher, fiscal officer, case technician)? Give summary @ -No Was critical care preformed (if so, how long)? @ -No Undiagnosed new problem with uncertain prognosis? @ -No Drug Therapy requiring intensive monitoring for toxicity (Heparin, Nitro, Insulin, Cardizem)? @ -No Were any procedures done? @ -No Diagnosis/symptom? Acute, or Chronic, or Acute on Chronic? Uncomplicated (without systemic symptoms) or Complicated (systemic symptoms)? @ -Chest pain Side effects of treatment? @ -No Exacerbation, Progression, or Severe Exacerbation? @ -No Poses a threat to life or bodily function? How? (Chest pain, [place], [place], pneumonia, PE, COPD, DKA, ARF, appy, cholecystitis, CVA, Diverticulitis, Homicidal, Suicidal, threat to staff... and all critical care pts) @ -yes - Lab Data Result diagrams: 05/23/24 15:31 05/23/24 15:31 Lab Results 05/23/24 05/23/24 05/23/24 Range/Units 15:10 15:31 15:31 WBC 8.3 (3.8-10.6) k/uL RBC 5.13 (3.80-5.40) m/uL Hgb 14.3 (11.4-16.0) gm/dL Hct 43.6 (34.0-46.0) % MCV 85.0 (80.0-100.0) fL MCH 27.9 (25.0-35.0) pg MCHC 32.9 (31.0-37.0) g/dL RDW 13.8 (11.5-15.5) % Plt Count 397 (150-450) k/uL MPV 7.3 Neutrophils % 56 % Lymphocytes % 31 % Monocytes % 7 % Eosinophils % 3 % Basophils % 1 % Neutrophils # 4.7 (1.3-7.7) k/uL Lymphocytes # 2.6 (1.0-4.8) k/uL Monocytes # 0.6 (0-1.0) k/uL Eosinophils # 0.3 (0-0.7) k/uL Basophils # 0.1 (0-0.2) k/uL PT 10.5 (10.0-12.5) sec INR 1.0 (<1.2) APTT 23.6 (22.0-30.0) sec D-Dimer 0.51 (<0.60) mg/L FEU Sodium (137-145) mmol/L Potassium (3.5-5.1) mmol/L Chloride (98-107) mmol/L Carbon Dioxide (22-30) mmol/L Anion Gap mmol/L BUN (7-17) mg/dL Creatinine (0.52-1.04) mg/dL Est GFR (CKD-EPI)AfAm (>60 ml/min/1.73 sqM) Est GFR (CKD-EPI)NonAf (>60 ml/min/1.73 sqM) Glucose (74-99) mg/dL Calcium (8.4-10.2) mg/dL Magnesium (1.6-2.3) mg/dL Total Bilirubin (0.2-1.3) mg/dL AST (14-36) U/L ALT (4-34) U/L Alkaline Phosphatase (38-126) U/L Troponin I <0.012 (0.000-0.034) ng/mL Total Protein (6.3-8.2) g/dL Albumin (3.5-5.0) g/dL 05/23/24 05/23/24 Range/Units 15:31 18:47 WBC (3.8-10.6) k/uL RBC (3.80-5.40) m/uL Hgb (11.4-16.0) gm/dL Hct (34.0-46.0) % MCV (80.0-100.0) fL MCH (25.0-35.0) pg MCHC (31.0-37.0) g/dL RDW (11.5-15.5) % Plt Count (150-450) k/uL MPV Neutrophils % % Lymphocytes % % Monocytes % % Eosinophils % % Basophils % % Neutrophils # (1.3-7.7) k/uL Lymphocytes # (1.0-4.8) k/uL Monocytes # (0-1.0) k/uL Eosinophils # (0-0.7) k/uL Basophils # (0-0.2) k/uL PT (10.0-12.5) sec INR (<1.2) APTT (22.0-30.0) sec D-Dimer (<0.60) mg/L FEU Sodium 138 (137-145) mmol/L Potassium 4.2 (3.5-5.1) mmol/L Chloride 110 H (98-107) mmol/L Carbon Dioxide 22 (22-30) mmol/L Anion Gap 6 mmol/L BUN 11 (7-17) mg/dL Creatinine 0.64 (0.52-1.04) mg/dL Est GFR (CKD-EPI)AfAm >90 (>60 ml/min/1.73 sqM) Est GFR (CKD-EPI)NonAf >90 (>60 ml/min/1.73 sqM) Glucose 118 H (74-99) mg/dL Calcium 9.6 (8.4-10.2) mg/dL Magnesium 2.1 (1.6-2.3) mg/dL Total Bilirubin 0.7 (0.2-1.3) mg/dL AST 47 H (14-36) U/L ALT 37 H (4-34) U/L Alkaline Phosphatase 72 (38-126) U/L Troponin I <0.012 (0.000-0.034) ng/mL Total Protein 6.9 (6.3-8.2) g/dL Albumin 4.2 (3.5-5.0) g/dL Disposition Clinical Impression: Chest pain Disposition: HOME SELF-CARE Condition: Fair Instructions (If sedation given, give patient instructions): Chest Pain (ED) Is patient prescribed a controlled substance at d/c from ED?: No Referrals: Reanna Patton III, MD [Primary Care Provider] - 1-2 days Leandro Adler DO [STAFF PHYSICIAN] - 1-2 days Time of Disposition: 19:39
[2024-05-23 15:37] LABS: Basophils # (A) 0.1 k/uL (0-0.2); Basophils % (A) 1 %; Eosinophils # (A) 0.3 k/uL (0-0.7); Eosinophils % (A) 3 %; HCT 43.6 % (34.0-46.0); HGB 14.3 gm/dL (11.4-16.0); Lymphocytes # (A) 2.6 k/uL (1.0-4.8); Lymphocytes % (A) 31 %; MCH 27.9 pg (25.0-35.0); MCHC 32.9 g/dL (31.0-37.0); Mean Platelet Volume 7.3; Monocytes # (A) 0.6 k/uL (0-1.0); Monocytes % (A) 7 %; Neutrophils # (A) 4.7 k/uL (1.3-7.7); Neutrophils % (A) 56 %; Platelet Count 397 k/uL (150-450); RBC 5.13 m/uL (3.80-5.40); RDW 13.8 % (11.5-15.5); WBC 8.3 k/uL (3.8-10.6)
--- NOTE | 2024-05-23 15:44 | XR ---
EXAMINATION TYPE: XR chest 2V DATE OF EXAM: 05/23/2024 COMPARISON: 04/18/2023 HISTORY: Chest pain TECHNIQUE: Frontal and lateral views of the chest are obtained. FINDINGS: There is no focal air space opacity, pleural effusion, or pneumothorax seen. The cardiac silhouette size is within normal limits. The osseous structures are intact. IMPRESSION: No acute cardiopulmonary process.
[2024-05-23 15:55] LABS: Partial Thromboplastin Time 23.6 sec (22.0-30.0); Prothrombin Time 10.5 sec (10.0-12.5)
[2024-05-23 16:04] LABS: AST 47 U/L (14-36); African American GFR (CKD) >90 (>60 ml/min/1.73 sqM); Albumin 4.2 g/dL (3.5-5.0); Blood Urea Nitrogen 11 mg/dL (7-17); Carbon Dioxide 22 mmol/L (22-30); Glucose 118 mg/dL (74-99); Magnesium 2.1 mg/dL (1.6-2.3); Non-African American GFR(CKD) >90 (>60 ml/min/1.73 sqM); Potassium 4.2 mmol/L (3.5-5.1); Sodium 138 mmol/L (137-145); Total Bilirubin 0.7 mg/dL (0.2-1.3); Total Protein 6.9 g/dL (6.3-8.2)
[2024-05-23 16:06] LABS: ALT 37 U/L (4-34); Alkaline Phosphatase 72 U/L (38-126); Anion Gap 6 mmol/L; Calcium 9.6 mg/dL (8.4-10.2); Chloride 110 mmol/L (98-107)
--- NOTE | 2024-05-23 17:56 | CT ---
EXAMINATION TYPE: CT angio chest DATE OF EXAM: 05/23/2024 COMPARISON: NONE HISTORY: thea CT DLP: 835.1 mGycm. Automated Exposure Control for Dose Reduction was Utilized. CONTRAST: CTA scan of the thorax is performed with IV Contrast, patient injected with 100 ml mL of Is ovue 370. MIP Images are created on CT scanner and reviewed. 3D reconstructed images are created on an independent workstation and reviewed. FINDINGS: AIRWAYS/LUNGS/PLEURAL SPACES: Airways are unremarkable. No acute pulmonary or pleural process. MEDIASTINUM: There is satisfactory enhancement of the pulmonary artery and its branches, with no CT e vidence for pulmonary embolism. No acute aortic process. No cardiomegaly or pericardial effusion. The re are no greater than 1 cm hilar or mediastinal lymph nodes. OTHER: No additional significant abnormality is seen. IMPRESSION: No acute process.
[2024-05-23 18:42] VITALS: TEMP 97.7
[2024-05-23] MEDS: ASPIRIN 81 MG PO STA (20:05)
[2024-05-23 20:12] VITALS: BP 129/74; PULSE 71
== END 2024-05-23 20:12 | disposition home or self-care (01) ==
LOC: EC 14:52
DX: R07.89 Other chest pain (principal); Z88.1 Allergy status to other antibiotic agents; Z88.5 Allergy status to narcotic agent; Z88.8 Allergy status to other drugs, medicaments and biological substances
CPT/HCPCS: 36415; 93005; 85379; 80053; 83735; 84484; 85025; 85610; 85730; 71046; 71275; 99285; Q9967

== ENCOUNTER → 2025-03-30 | Outpatient (CLI) | payer OTHER ==
[2025-03-30 18:10] LABS: Basophils # (A) 0.09 X 10*3/uL (0.00-0.10); Eosinophils # (A) 0.21 X 10*3/uL (0.04-0.35); Eosinophils % (A) 2.3 %; HCT 44.7 % (37.2-46.3); HGB 14.4 g/dL (12.0-15.0); Lymphocytes # (A) 2.44 X 10*3/uL (0.90-5.00); Lymphocytes % (A) 27.1 %; MCH 27.3 pg (27.0-32.0); MCHC 32.2 g/dL (32.0-37.0); MCV 84.8 FL (80.0-97.0); Mean Platelet Volume 10.4 FL (9.5-12.2); Monocytes % (A) 6.7 %; NRBC Per 100 WBC 0 X 10*3/uL (0.00-0.01); Neutrophils # (A) 5.62 X 10*3/uL (1.80-7.70); Neutrophils % (A) 62.5 %; Platelet Count 419 X 10*3/uL (140-440); RBC 5.27 X 10*6/uL (4.10-5.20)
[2025-03-30 18:35] LABS: Blood Urea Nitrogen 8.4 mg/dL (9.0-27.0); Carbon Dioxide 24.4 mmol/L (21.6-31.8); Chloride 104 mmol/L (96-109); Glucose 112 mg/dL (70-110); Potassium 4.5 mmol/L (3.5-5.5); Sodium 140 mmol/L (135-145)
[2025-03-30 18:36] LABS: ALT 58 U/L (8-44); AST 59 U/L (13-35); Albumin 4.4 g/dL (3.8-4.9); Albumin/Globulin Ratio 1.33 Ratio (1.60-3.17); Alkaline Phosphatase 103 U/L (41-126); Globulin 3.3 g/dL (1.6-3.3); Total Bilirubin 0.6 mg/dL (0.3-1.2); Total Protein 7.7 g/dL (6.2-8.2)
== END | disposition home or self-care (01) ==
LOC: LABWHC1 15:12
PROVIDERS: ATTEND Family Medicine
DX: E66.01 Morbid (severe) obesity due to excess calories (principal); E03.9 Hypothyroidism, unspecified; K58.0 Irritable bowel syndrome with diarrhea; E55.9 Vitamin D deficiency, unspecified; R53.83 Other fatigue; R53.81 Other malaise; R03.0 Elevated blood-pressure reading, without diagnosis of hypertension
CPT/HCPCS: 36415; 80053; 82306; 83036; 84443; 85025